=== PATIENT | female | born 1975 | race Caucasian/White ===

== ENCOUNTER 2018-05-07 12:08 | Inpatient (IN) | payer OTHER ==
[2018-05-07 12:56] VITALS: BMI 30.2
--- NOTE | 2018-05-07 15:07 | HP ---
CIWA Score - Admission Criteria [facility] Guidelines: Admission for Medically Managed Detox: Requires at least one of the followin. CIWA greater than 12 2. Seizures within the past 24 hours 3. Delirium tremens within the past 24 hours 4. Hallucinations within the past 24 hours 5. Acute intervention needed for co occurring medical disorder 6. Acute intervention needed for co occurring psychiatric disorder 7. Severe withdrawal that cannot be handled at a lower level of care (continued vomiting, continued diarrhea, abnormal vital signs) requiring intravenous medication and/or fluids 8. Admission ROS [facility] - [facility] Chief Complaint: PATIENT PRESENTS FOR REHAB FOR BZO DEPENDENCE. Allergies/Adverse Reactions: Allergies Allergy/AdvReac Type Severity Reaction Status Date / Time No Known Allergies Allergy Verified 05/07/18 15:11 History of Present Illness: PATIENT PRESENTS FOR REHAB FOR BZO DEPENDENCE. LAST USE 04/23/18, UDS +MTD. PATIENT IS IN [facility] MTD PROGRAM AND REPORTS DAILY DOSE OF 35MG, LAST DOSE TODAY. PENDING RN VERIFICATION. PATIENT STATES SHE STARTED TAKING PRESCRIBED KLONIPIN WHICH WAS VERIFIED IN ISTOP: SEE BELOW. PATIENT SAYS SHE WANTED TO GET OFF MEDICATION DUE TO ACS CASE. PATIENT DENIES SEIZURES, BLACK-OUTS AND FALLS. PATIENT ALSO SNIFFED ONE BAG OF HEROIN AFTER 8 MONTHS OF SOBRIETY ON . SHE STATES SHE HAS NOT SNIFFED HEROIN SINCE. PATIENT PMH INCLUDES IDDM, TOBACCO USE AND BIPOLAR DISORDER. PATIENT DENIES SI/HI. +SUICIDE ATTEMPT AT AGE 18 BY TAKING OVERDOSE OF BILLS. Others' Prescriptions Patient Name: Pebbles Lopez Date: 1975 Address: [address] [place] [id number] Sex: Female Rx Written Rx Dispensed Drug Quantity Days Supply Prescriber Name 03/01/2018 03/29/2018 clonazepam 1 mg tablet 30 30 Morro Mittal MD Patient Name: Pebbles Lopez Date: 1975 Address: [address] [place] [id number] Sex: Female Rx Written Rx Dispensed Drug Quantity Days Supply Prescriber Name 10/24/2017 10/24/2017 oxycodone-acetaminophen 5-325 mg tab 10 5 Raj Mejia MD 07/21/2017 07/22/2017 clonazepam 0.5 mg tablet 30 15 Joseph Cardenas MD Patient Name: Pebbles Lopez Date: 1975 Address: [address] [place] [id number] [place] [address] Sex: Female Rx Written Rx Dispensed Drug Quantity Days Supply Prescriber Name 09/20/2017 09/20/2017 oxycodone-acetaminophen 5-325 mg tablet 2 1 Slezinger, Anele * - Drugs marked with an asterisk are compound drugs. If the compound drug is made up of more than one controlled substance, then each controlled substance will be a separate row in the table. - Ebola screening Have you traveled outside of the country in the last 21 days: No Have you had contact with anyone from an Ebola affected area: No Have you been sick,other than usual withdrawal symptoms: No Do you have a fever: No - Review of Systems Constitutional: Changes in sleep, Unintentional Wgt. Loss EENT: reports: Blurred Vision (WHEN BLOOD SUGAR ELEVATED), Nose Congestion, Other (NO TEETH) Respiratory: reports: Cough (INTERMITTENT PRODUCTIVE COUGH) Cardiac: reports: No Symptoms Reported GI: reports: No Symptoms Reported : reports: No Symptoms Reported Musculoskeletal: reports: Back Pain, Muscle Pain Integumentary: reports: No Symptoms Reported Neuro: reports: Headache Endocrine: reports: Unexplained Weight Loss Hematology: reports: No Symptoms Reported Psychiatric: reports: Orientated x3, Anxious, Depressed Patient History - Patient Medical History Hx Anemia: No Hx Asthma: No Hx Chronic Obstructive Pulmonary Disease (COPD): No Hx Cancer: No Hx Cardiac Disorders: No Hx Congestive Heart Failure: No Hx Hypertension: No Hx Hypercholesterolemia: No Hx Pacemaker: No HX Cerebrovascular Accident: No Hx Seizures: No Hx Dementia: No Hx Diabetes: Yes (IDDM) Hx Gastrointestinal Disorders: No Hx Liver Disease: No Hx Genitourinary Disorders: No Hx Sexually Transmitted Disorders: No Hx Renal Disease (ESRD): No Hx Thyroid Disease: No Hx Human Immunodeficiency Virus (HIV): No (LAST TEST LAST MONTH AND REPORTS NEGATIVE, REFUSED TESTING) Hx Hepatitis C: No Hx Depression: No Hx Suicide Attempt: Yes (AGE 18, OVERDOSE OF PILLS) Hx Bipolar Disorder: Yes Hx Schizophrenia: No - Patient Surgical History Past Surgical History: Yes Other Surgical History: BREAST REDUCTION Anesthesia Reaction: No - PPD History Previous Implant?: Yes Documented Results: Negative w/o proof PPD to be Administered?: Yes - Reproductive History Patient is a Female of Child Bearing Age (11 -55 yrs old): Yes LMP comment: 04/18/18 Patient : No - Smoking Cessation Smoking history: Current every day smoker Have you smoked in the past 12 months: Yes Aproximately how many cigarettes per day: 10 Hx Chewing Tobacco Use: No Initiated information on smoking cessation: Yes 'Breaking Loose' booklet given: 05/07/18 - Substance & Tx. History Hx Alcohol Use: No Hx Substance Use: Yes Substance Use Type: Prescribed, Tranquilizers Hx Substance Use Treatment: Yes (2017 AT [facility] IN [place], [place]) - Substances Abused Benzodiazepine (Klonopin) Route: Oral Frequency: Daily Amount used: 10mg Age of first use: 35 Date of Last Use: 04/23/18 Heroin Route: Inhalation Frequency: 1-3 times last 30 days Amount used: 1/2 bag Age of first use: 36 Date of Last Use: 05/03/18 Family Disease History - Family Disease History Family Disease History: Diabetes: Father, Mother Admission Physical Exam [facility] - Vital Signs Vital Signs: Vital Signs - 24 hr 05/07/18 12:55 Temperature 98.3 F Pulse Rate 90 Respiratory 18 Rate Blood Pressure 111/67 - Physical General Appearance: Yes: No Apparent Distress, Appropriately Dressed, Anxious HEENTM: Yes: EOMI, Hearing grossly Normal, Normal ENT Inspection, Normocephalic , Normal Voice, ANGELITA, Pharynx Normal Respiratory: Yes: Chest Non-Tender, Lungs Clear, Normal Breath Sounds, No Accessory Muscle Use Neck: Yes: No masses,lesions,Nodules, Supple, Trachea in good position Breast: Yes: Breast Exam Deferred Cardiology: Yes: Regular Rhythm, Regular Rate, S1, S2 Abdominal: Yes: Normal Bowel Sounds, Non Tender, Soft Genitourinary: Yes: Frequency (WHEN BLOOD SUGAR ELEVATED) Back: Yes: Within Normal Limits Musculoskeletal: Yes: full range of Motion, Gait Steady Extremities: Yes: Normal Inspection, Normal Range of Motion, Non-Tender Neurological: Yes: medical assistant per diem II-XII NML intact, Fully Oriented, Alert, Motor Strength 5/5, Normal Response, Depressed Affect, Other (ANXIOUS) Integumentary: Yes: Normal Color, Dry, Warm Lymphatic: Yes: Within Normal Limits - Diagnostic (1) Benzodiazepine dependence Current Visit: Yes Status: Chronic (2) Methadone maintenance therapy patient Current Visit: Yes Status: Chronic (3) IDDM (insulin dependent diabetes mellitus) Current Visit: Yes Status: Chronic (4) Bipolar disorder Current Visit: Yes Status: Chronic Qualifiers: Most recent bipolar episode type: most recent episode unspecified type Cleared for Admission [facility] - Detox or Rehab Claeared for Rehab Admission: Yes [facility] Breath Alcohol Content Breath Alcohol Content: 0 Urine Pregancy Test - Result Urine Test Results: Negative- NO Line Present Urine Drug Screen - Results Drug Screen Negative: No Urine Drug Screen Results: MTD-Methadone Inpatient Rehab Admission - Rehab Decision to Admit Inpatient rehab admission?: Yes - Initial Determination Are CD services needed?: Yes Free of communicable disease: Yes Not in need of hospitalization: Yes - Rehab Admission Criteria Previous failed treatment: Yes Poor recovery environment: Yes Comorbidities: Yes Lacks judgement: No Patient is meeting Inpatient Rehab admission criteria:: Yes
[2018-05-07] MEDS ORDERED: guaiFENesin/D-METHORPHAN HB 10 ML UNIT-DOSE CUPS PO PRN (15:11)
[2018-05-07] MEDS ORDERED: P-EPHED 60MG/TRIPROLIDI 2.5MG TABLET PO PRN (15:11)
[2018-05-07] MEDS ORDERED: MAG HYDROX/AL HYDROX/SIMETH 30 ML UNIT-DOSE CUP PO PRN (15:11)
[2018-05-07] MEDS ORDERED: MENTHOL/PHENOL 1 EACH UD MM PRN (15:11)
[2018-05-07] MEDS ORDERED: MAGNESIUM CITRATE 300 ML BOTTLE PO PRN (15:11)
[2018-05-07] MEDS ORDERED: MAGNESIUM HYDROX 2400MG/30ML ORAL SUSPENSION 30 ML CUP PO PRN (15:11)
[2018-05-07] MEDS ORDERED: LOPERAMIDE HCL 2 MG CAPSULE PO PRN (15:11)
[2018-05-07] MEDS ORDERED: INSULIN (NOVOLOG) ASPART 100 UNITS/ML 10ML VIAL SQ ONE (15:15)
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
[2018-05-07] MEDS ORDERED: TUBERCULIN PPD 5 TU/0.1ML VIAL ID ONE (17:39)
[2018-05-07] MEDS: GABAPENTIN 400 MG CAPSULE (FP) PO SCH ×2 (17:53→22:15)
[2018-05-07] MEDS: INSULIN (LEVEMIR) 100 UNITS/ML UNITS SQ SCH (17:56)
[2018-05-07] MEDS: INSULIN SLIDING SCALE (NOVOLOG) 1 VIAL SQ SCH ×2 (18:01→22:08)
[2018-05-07] MEDS: hydrOXYzine PAMOATE 50 MG CAPSULE (FP) PO PRN (18:01)
[2018-05-07] MEDS ORDERED: INSULIN (NOVOLOG) ASPART 100 UNITS/ML 10ML VIAL ONE ×2 (18:01→22:09)
[2018-05-07] MEDS: THIAMINE HCL 100 MG TABLET (FP) PO SCH (22:10)
[2018-05-08] MEDS: GABAPENTIN 400 MG CAPSULE (FP) PO SCH ×3 (07:07→21:27)
[2018-05-08] MEDS: INSULIN SLIDING SCALE (NOVOLOG) 1 VIAL SQ SCH ×4 (07:08→21:30)
[2018-05-08] MEDS ORDERED: INSULIN (NOVOLOG) ASPART 100 UNITS/ML 10ML VIAL ONE ×4 (07:09→22:33)
[2018-05-08] MEDS: INSULIN (LEVEMIR) 100 UNITS/ML UNITS SQ SCH ×3 (07:10→16:56)
[2018-05-08] MEDS ORDERED: METHADONE HCL 40 MG DISPERSABLE TABLET PO SCH (08:45)
[2018-05-08] MEDS ORDERED: METHADONE HCL 5 MG TABLET ONE (08:58)
[2018-05-08] MEDS ORDERED: METHADONE HCL 10 MG TABLET ONE (08:58)
[2018-05-08] MEDS: ACETAMINOPHEN 325 MG TABLET (FP) PO PRN (09:10)
[2018-05-08] MEDS: METHADONE 30 MG, METHADONE 5 MG PO SCH (09:10)
[2018-05-08] MEDS: NICOTINE 21 MG/24 HOURS TOPICAL PATCH TD SCH (09:10)
[2018-05-08] MEDS: PRENATAL VITAMINS W/ FOLIC ACID TABLET (FP) PO SCH (09:10)
[2018-05-08] MEDS: hydrOXYzine PAMOATE 50 MG CAPSULE (FP) PO PRN ×3 (09:11→21:29)
[2018-05-08 10:23] LABS: HEMATOCRIT 42.6 % (32.4-45.2); HEMOGLOBIN 14.8 GM/dL (10.7-15.3); MCH 31.8 pg (25.7-33.7); MCHC 34.7 g/dl (32.0-36.0); MEAN CELL VOLUME 91.7 fl (80-96); MEAN PLT VOLUME 7.8 fl (7.5-11.1); PLATELET COUNT 202 K/MM3 (134-434); RBC 4.64 M/mm3 (3.60-5.2); RDW 13.6 % (11.6-15.6); WHITE BLOOD COUNT 8.7 K/mm3 (4.0-10.0)
[2018-05-08 10:26] LABS: ALBUMIN 3.7 g/dl (3.4-5.0); ALK PHOS 87 U/L (45-117); ANION GAP 6 MMOL/L (8-16); BILIRUBIN,TOTAL 0.2 mg/dL (0.2-1); BLOOD UREA NITROGEN 13 mg/dL (7-18); CALCIUM 8.5 mg/dL (8.5-10.1); CHLORIDE 103 mmol/L (98-107); CO2 27 mmol/L (21-32); CREATININE 0.7 mg/dL (0.55-1.3); GLUCOSE,RANDOM 256 mg/dL (74-106); POTASSIUM 4.4 mmol/L (3.5-5.1); SGOT/AST 12 U/L (15-37); SGPT/ALT 22 U/L (13-61); SODIUM 136 mmol/L (136-145); TOT PROT 7.7 g/dl (6.4-8.2); URINE APPEARANCE SLCLOUDY; URINE BILIRUBIN NEGATIVE (<2.0 mg/dL); URINE COLOR LTYELLOW; URINE GLUCOSE (UA) 3+ (NEGATIVE); URINE KETONE NEGATIVE (NEGATIVE); URINE LEUK ESTERASE 1+ (NEGATIVE); URINE NITRITE NEGATIVE (NEGATIVE); URINE PROTEIN NEGATIVE (NEGATIVE); URINE UROBILINOGEN NEGATIVE mg/dL (0.2-1.0)
[2018-05-08 10:29] LABS: EPI CELLS MANY /HPF (FEW); URINE BACTERIA RARE /hpf (NONE SEEN); YEAST RARE
[2018-05-08] MEDS: IBUPROFEN 400 MG TABLET (FP) PO PRN (11:56)
[2018-05-08] MEDS: THIAMINE HCL 100 MG TABLET (FP) PO SCH (21:27)
[2018-05-08] MEDS: MELATONIN 5 MG TABLETS PO PRN (21:29)
--- NOTE | 2018-05-08 22:18 | EKG ---
Test Reason : Blood Pressure : / mmHG Vent. Rate : 095 BPM Atrial Rate : 095 BPM P-R Int : 170 ms QRS Dur : 086 ms QT Int : 368 ms P-R-T Axes : 065 045 073 degrees QTc Int : 462 ms NORMAL SINUS RHYTHM NORMAL ECG NO PREVIOUS ECGS AVAILABLE Confirmed by EDUARDO RENAE MD ([id number]) on 05/08/2018 10:18:18 PM Referred By: Confirmed By:EDUARDO RENAE MD
[2018-05-09] MEDS ORDERED: METHADONE HCL 10 MG TABLET ONE (02:34)
[2018-05-09] MEDS ORDERED: METHADONE HCL 5 MG TABLET ONE (02:34)
[2018-05-09] MEDS: METHADONE 30 MG, METHADONE 5 MG PO SCH (06:30)
[2018-05-09] MEDS: GABAPENTIN 400 MG CAPSULE (FP) PO SCH ×3 (06:30→21:45)
[2018-05-09] MEDS: INSULIN SLIDING SCALE (NOVOLOG) 1 VIAL SQ SCH ×4 (07:29→21:47)
[2018-05-09] MEDS: INSULIN (LEVEMIR) 100 UNITS/ML UNITS SQ SCH ×3 (07:29→16:42)
[2018-05-09] MEDS: hydrOXYzine PAMOATE 50 MG CAPSULE (FP) PO PRN ×2 (07:31→14:16)
[2018-05-09] MEDS: IBUPROFEN 400 MG TABLET (FP) PO PRN (07:31)
[2018-05-09] MEDS ORDERED: INSULIN (LEVEMIR) 100 UNITS/ML UNITS SQ ONE ×2 (07:37→22:54)
[2018-05-09] MEDS ORDERED: PT OWN MED DRAWER 7, Y5N ONE ×2 (07:38→22:57)
[2018-05-09] MEDS: PRENATAL VITAMINS W/ FOLIC ACID TABLET (FP) PO SCH (10:15)
[2018-05-09] MEDS: NICOTINE 21 MG/24 HOURS TOPICAL PATCH TD SCH (10:15)
[2018-05-09] MEDS ORDERED: INSULIN (NOVOLOG) ASPART 100 UNITS/ML 10ML VIAL ONE (11:40)
[2018-05-09] MEDS: MELATONIN 5 MG TABLETS PO PRN (21:45)
[2018-05-09] MEDS: THIAMINE HCL 100 MG TABLET (FP) PO SCH (21:45)
[2018-05-10] MEDS ORDERED: METHADONE HCL 10 MG TABLET ONE (03:30)
[2018-05-10] MEDS ORDERED: METHADONE HCL 5 MG TABLET ONE (03:30)
[2018-05-10] MEDS: METHADONE 30 MG, METHADONE 5 MG PO SCH (06:56)
[2018-05-10] MEDS: GABAPENTIN 400 MG CAPSULE (FP) PO SCH ×3 (06:57→21:03)
[2018-05-10] MEDS: INSULIN SLIDING SCALE (NOVOLOG) 1 VIAL SQ SCH ×4 (07:44→21:05)
[2018-05-10] MEDS ORDERED: INSULIN (NOVOLOG) ASPART 100 UNITS/ML 10ML VIAL ONE ×2 (07:44→12:05)
[2018-05-10] MEDS: INSULIN (LEVEMIR) 100 UNITS/ML UNITS SQ SCH ×3 (07:45→16:51)
[2018-05-10] MEDS: hydrOXYzine PAMOATE 50 MG CAPSULE (FP) PO PRN ×2 (07:46→16:50)
[2018-05-10] MEDS: PRENATAL VITAMINS W/ FOLIC ACID TABLET (FP) PO SCH (10:25)
[2018-05-10] MEDS: NICOTINE 21 MG/24 HOURS TOPICAL PATCH TD SCH (10:25)
[2018-05-10] MEDS: IBUPROFEN 400 MG TABLET (FP) PO PRN (10:26)
[2018-05-10] MEDS: THIAMINE HCL 100 MG TABLET (FP) PO SCH (21:03)
[2018-05-10] MEDS: MELATONIN 5 MG TABLETS PO PRN (21:05)
[2018-05-10] MEDS ORDERED: PT OWN MED DRAWER 7, Y5N ONE (22:10)
[2018-05-11] MEDS ORDERED: METHADONE HCL 5 MG TABLET ONE (06:05)
[2018-05-11] MEDS ORDERED: METHADONE HCL 10 MG TABLET ONE (06:05)
[2018-05-11] MEDS: METHADONE 30 MG, METHADONE 5 MG PO SCH (06:50)
[2018-05-11] MEDS: GABAPENTIN 400 MG CAPSULE (FP) PO SCH ×3 (06:51→22:06)
[2018-05-11] MEDS: IBUPROFEN 400 MG TABLET (FP) PO PRN (06:54)
[2018-05-11] MEDS: INSULIN SLIDING SCALE (NOVOLOG) 1 VIAL SQ SCH ×4 (07:44→22:19)
[2018-05-11] MEDS: INSULIN (LEVEMIR) 100 UNITS/ML UNITS SQ SCH ×3 (08:40→17:04)
[2018-05-11] MEDS ORDERED: INSULIN (LEVEMIR) 100 UNITS/ML UNITS SQ ONE (09:14)
[2018-05-11] MEDS: NICOTINE 21 MG/24 HOURS TOPICAL PATCH TD SCH (10:30)
[2018-05-11] MEDS: PRENATAL VITAMINS W/ FOLIC ACID TABLET (FP) PO SCH (10:30)
[2018-05-11] MEDS: FLUoxetine HCL 20 MG CAPSULE (FP) PO SCH (10:31)
[2018-05-11] MEDS: hydrOXYzine PAMOATE 50 MG CAPSULE (FP) PO PRN ×2 (10:31→16:49)
[2018-05-11] MEDS ORDERED: INSULIN (NOVOLOG) ASPART 100 UNITS/ML 10ML VIAL ONE ×2 (12:03→17:03)
[2018-05-11] MEDS: THIAMINE HCL 100 MG TABLET (FP) PO SCH (22:06)
[2018-05-11] MEDS: QUEtiapine FUMARATE 100 MG TABLET (FP) PO SCH (22:07)
[2018-05-12] MEDS ORDERED: METHADONE HCL 5 MG TABLET ONE (06:10)
[2018-05-12] MEDS ORDERED: METHADONE HCL 10 MG TABLET ONE (06:10)
[2018-05-12] MEDS: GABAPENTIN 400 MG CAPSULE (FP) PO SCH ×3 (06:59→21:24)
[2018-05-12] MEDS: METHADONE 30 MG, METHADONE 5 MG PO SCH (06:59)
[2018-05-12] MEDS: INSULIN (LEVEMIR) 100 UNITS/ML UNITS SQ SCH ×3 (07:00→17:15)
[2018-05-12] MEDS: INSULIN SLIDING SCALE (NOVOLOG) 1 VIAL SQ SCH ×4 (07:01→21:23)
[2018-05-12] MEDS: hydrOXYzine PAMOATE 50 MG CAPSULE (FP) PO PRN ×2 (09:39→21:24)
[2018-05-12] MEDS: FLUoxetine HCL 20 MG CAPSULE (FP) PO SCH (09:39)
[2018-05-12] MEDS: NICOTINE 21 MG/24 HOURS TOPICAL PATCH TD SCH (09:39)
[2018-05-12] MEDS: PRENATAL VITAMINS W/ FOLIC ACID TABLET (FP) PO SCH (09:39)
[2018-05-12] MEDS ORDERED: INSULIN (LEVEMIR) 100 UNITS/ML UNITS SQ ONE (11:59)
[2018-05-12] MEDS: THIAMINE HCL 100 MG TABLET (FP) PO SCH (21:23)
[2018-05-12] MEDS: QUEtiapine FUMARATE 100 MG TABLET (FP) PO SCH (21:23)
[2018-05-13] MEDS ORDERED: METHADONE HCL 5 MG TABLET ONE (05:43)
[2018-05-13] MEDS ORDERED: METHADONE HCL 10 MG TABLET ONE (05:44)
[2018-05-13] MEDS: GABAPENTIN 400 MG CAPSULE (FP) PO SCH ×3 (06:54→21:22)
[2018-05-13] MEDS: METHADONE 30 MG, METHADONE 5 MG PO SCH (06:54)
[2018-05-13] MEDS ORDERED: INSULIN (NOVOLOG) ASPART 100 UNITS/ML 10ML VIAL ONE ×4 (06:57→23:00)
[2018-05-13] MEDS: INSULIN SLIDING SCALE (NOVOLOG) 1 VIAL SQ SCH ×4 (06:58→21:24)
[2018-05-13] MEDS: INSULIN (LEVEMIR) 100 UNITS/ML UNITS SQ SCH ×3 (07:39→17:00)
[2018-05-13] MEDS: FLUoxetine HCL 20 MG CAPSULE (FP) PO SCH (09:13)
[2018-05-13] MEDS: hydrOXYzine PAMOATE 50 MG CAPSULE (FP) PO PRN ×3 (09:13→21:23)
[2018-05-13] MEDS: PRENATAL VITAMINS W/ FOLIC ACID TABLET (FP) PO SCH (09:14)
[2018-05-13] MEDS: NICOTINE 21 MG/24 HOURS TOPICAL PATCH TD SCH (09:14)
[2018-05-13] MEDS: QUEtiapine FUMARATE 100 MG TABLET (FP) PO SCH (21:23)
[2018-05-13] MEDS: THIAMINE HCL 100 MG TABLET (FP) PO SCH (21:23)
[2018-05-13] MEDS ORDERED: ACETAMINOPHEN 325 MG TABLET (FP) ONE (23:03)
[2018-05-13] MEDS ORDERED: PT OWN MED DRAWER 7, Y5N ONE (23:03)
[2018-05-14] MEDS ORDERED: METHADONE HCL 5 MG TABLET ONE (05:56)
[2018-05-14] MEDS ORDERED: METHADONE HCL 10 MG TABLET ONE (05:57)
[2018-05-14] MEDS: INSULIN SLIDING SCALE (NOVOLOG) 1 VIAL SQ SCH ×4 (06:24→21:30)
[2018-05-14] MEDS ORDERED: INSULIN (NOVOLOG) ASPART 100 UNITS/ML 10ML VIAL ONE ×3 (06:25→16:58)
[2018-05-14] MEDS: METHADONE 30 MG, METHADONE 5 MG PO SCH (06:25)
[2018-05-14] MEDS: GABAPENTIN 400 MG CAPSULE (FP) PO SCH ×3 (06:25→21:29)
[2018-05-14] MEDS: INSULIN (LEVEMIR) 100 UNITS/ML UNITS SQ SCH ×3 (07:42→17:00)
[2018-05-14] MEDS: hydrOXYzine PAMOATE 50 MG CAPSULE (FP) PO PRN ×3 (07:43→21:32)
[2018-05-14] MEDS: PRENATAL VITAMINS W/ FOLIC ACID TABLET (FP) PO SCH (10:35)
[2018-05-14] MEDS: NICOTINE 21 MG/24 HOURS TOPICAL PATCH TD SCH (10:35)
[2018-05-14] MEDS: FLUoxetine HCL 20 MG CAPSULE (FP) PO SCH (10:35)
--- NOTE | 2018-05-14 12:37 | PN ---
[facility] Progress Note Note: NURSE МАРИЯ CALLED TO INFORM MEDIA PRODUCTION MANAGER BS 460 MG/DL AND 10 UNITS REG. INSULIN SLIDING SCALE GIVEN ALONG WITH LEVEMIR 15 UNITS RASHID DOSE GIVEN ORDERED. Laboratory Tests 05/07/18 05/07/18 05/07/18 15:14 17:51 22:04 WBC RBC Hgb Hct MCV MCH MCHC RDW Plt Count MPV Sodium Potassium Chloride Carbon Dioxide Anion Gap BUN Creatinine Creat Clearance w eGFR POC Glucometer 386 354 302 Random Glucose Calcium Total Bilirubin AST ALT Alkaline Phosphatase Total Protein Albumin Urine Color Urine Appearance Urine pH Ur Specific [place] Urine Protein Urine Glucose (UA) Urine Ketones Urine Blood Urine Nitrite Urine Bilirubin Urine Urobilinogen Ur Leukocyte Esterase Urine WBC (Auto) Urine RBC (Auto) Ur Epithelial Cells Urine Bacteria Urine Yeast RPR Titer 05/08/18 05/08/18 05/08/18 07:07 07:40 07:40 WBC 8.7 RBC 4.64 Hgb 14.8 Hct 42.6 MCV 91.7 MCH 31.8 MCHC 34.7 RDW 13.6 Plt Count 202 MPV 7.8 Sodium 136 Potassium 4.4 Chloride 103 Carbon Dioxide 27 Anion Gap 6 L BUN 13 Creatinine 0.7 Creat Clearance w eGFR > 60 POC Glucometer 265 Random Glucose 256 H Calcium 8.5 Total Bilirubin 0.2 AST 12 L ALT 22 Alkaline Phosphatase 87 Total Protein 7.7 Albumin 3.7 Urine Color Urine Appearance Urine pH Ur Specific [place] Urine Protein Urine Glucose (UA) Urine Ketones Urine Blood Urine Nitrite Urine Bilirubin Urine Urobilinogen Ur Leukocyte Esterase Urine WBC (Auto) Urine RBC (Auto) Ur Epithelial Cells Urine Bacteria Urine Yeast RPR Titer 05/08/18 05/08/18 05/08/18 07:40 07:40 11:50 WBC RBC Hgb Hct MCV MCH MCHC RDW Plt Count MPV Sodium Potassium Chloride Carbon Dioxide Anion Gap BUN Creatinine Creat Clearance w eGFR POC Glucometer 347 Random Glucose Calcium Total Bilirubin AST ALT Alkaline Phosphatase Total Protein Albumin Urine Color Ltyellow Urine Appearance Slcloudy Urine pH 6.0 Ur Specific [place] 1.035 Urine Protein Negative Urine Glucose (UA) 3+ H Urine Ketones Negative Urine Blood Negative Urine Nitrite Negative Urine Bilirubin Negative Urine Urobilinogen Negative Ur Leukocyte Esterase 1+ H Urine WBC (Auto) 6 Urine RBC (Auto) 6 Ur Epithelial Cells Many Urine Bacteria Rare Urine Yeast Rare RPR Titer Nonreactive 05/08/18 05/08/18 05/09/18 16:45 21:00 06:33 WBC RBC Hgb Hct MCV MCH MCHC RDW Plt Count MPV Sodium Potassium Chloride Carbon Dioxide Anion Gap BUN Creatinine Creat Clearance w eGFR POC Glucometer 366 381 245 Random Glucose Calcium Total Bilirubin AST ALT Alkaline Phosphatase Total Protein Albumin Urine Color Urine Appearance Urine pH Ur Specific [place] Urine Protein Urine Glucose (UA) Urine Ketones Urine Blood Urine Nitrite Urine Bilirubin Urine Urobilinogen Ur Leukocyte Esterase Urine WBC (Auto) Urine RBC (Auto) Ur Epithelial Cells Urine Bacteria Urine Yeast RPR Titer 05/09/18 05/09/18 05/09/18 11:33 16:31 20:52 WBC RBC Hgb Hct MCV MCH MCHC RDW Plt Count MPV Sodium Potassium Chloride Carbon Dioxide Anion Gap BUN Creatinine Creat Clearance w eGFR POC Glucometer 409 292 439 Random Glucose Calcium Total Bilirubin AST ALT Alkaline Phosphatase Total Protein Albumin Urine Color Urine Appearance Urine pH Ur Specific [place] Urine Protein Urine Glucose (UA) Urine Ketones Urine Blood Urine Nitrite Urine Bilirubin Urine Urobilinogen Ur Leukocyte Esterase Urine WBC (Auto) Urine RBC (Auto) Ur Epithelial Cells Urine Bacteria Urine Yeast RPR Titer 05/10/18 05/10/18 05/10/18 06:55 12:02 16:48 WBC RBC Hgb Hct MCV MCH MCHC RDW Plt Count MPV Sodium Potassium Chloride Carbon Dioxide Anion Gap BUN Creatinine Creat Clearance w eGFR POC Glucometer 283 487 335 Random Glucose Calcium Total Bilirubin AST ALT Alkaline Phosphatase Total Protein Albumin Urine Color Urine Appearance Urine pH Ur Specific [place] Urine Protein Urine Glucose (UA) Urine Ketones Urine Blood Urine Nitrite Urine Bilirubin Urine Urobilinogen Ur Leukocyte Esterase Urine WBC (Auto) Urine RBC (Auto) Ur Epithelial Cells Urine Bacteria Urine Yeast RPR Titer 05/10/18 05/11/18 05/11/18 20:53 06:47 12:00 WBC RBC Hgb Hct MCV MCH MCHC RDW Plt Count MPV Sodium Potassium Chloride Carbon Dioxide Anion Gap BUN Creatinine Creat Clearance w eGFR POC Glucometer 393 256 464 Random Glucose Calcium Total Bilirubin AST ALT Alkaline Phosphatase Total Protein Albumin Urine Color Urine Appearance Urine pH Ur Specific [place] Urine Protein Urine Glucose (UA) Urine Ketones Urine Blood Urine Nitrite Urine Bilirubin Urine Urobilinogen Ur Leukocyte Esterase Urine WBC (Auto) Urine RBC (Auto) Ur Epithelial Cells Urine Bacteria Urine Yeast RPR Titer 05/11/18 05/11/18 05/12/18 16:46 22:12 06:26 WBC RBC Hgb Hct MCV MCH MCHC RDW Plt Count MPV Sodium Potassium Chloride Carbon Dioxide Anion Gap BUN Creatinine Creat Clearance w eGFR POC Glucometer 357 421 223 Random Glucose Calcium Total Bilirubin AST ALT Alkaline Phosphatase Total Protein Albumin Urine Color Urine Appearance Urine pH Ur Specific [place] Urine Protein Urine Glucose (UA) Urine Ketones Urine Blood Urine Nitrite Urine Bilirubin Urine Urobilinogen Ur Leukocyte Esterase Urine WBC (Auto) Urine RBC (Auto) Ur Epithelial Cells Urine Bacteria Urine Yeast RPR Titer 05/12/18 05/12/18 05/12/18 11:54 17:12 21:20 WBC RBC Hgb Hct MCV MCH MCHC RDW Plt Count MPV Sodium Potassium Chloride Carbon Dioxide Anion Gap BUN Creatinine Creat Clearance w eGFR POC Glucometer 396 281 354 Random Glucose Calcium Total Bilirubin AST ALT Alkaline Phosphatase Total Protein Albumin Urine Color Urine Appearance Urine pH Ur Specific [place] Urine Protein Urine Glucose (UA) Urine Ketones Urine Blood Urine Nitrite Urine Bilirubin Urine Urobilinogen Ur Leukocyte Esterase Urine WBC (Auto) Urine RBC (Auto) Ur Epithelial Cells Urine Bacteria Urine Yeast RPR Titer 05/13/18 05/13/18 05/13/18 06:53 11:50 16:52 WBC RBC Hgb Hct MCV MCH MCHC RDW Plt Count MPV Sodium Potassium Chloride Carbon Dioxide Anion Gap BUN Creatinine Creat Clearance w eGFR POC Glucometer 238 321 381 Random Glucose Calcium Total Bilirubin AST ALT Alkaline Phosphatase Total Protein Albumin Urine Color Urine Appearance Urine pH Ur Specific [place] Urine Protein Urine Glucose (UA) Urine Ketones Urine Blood Urine Nitrite Urine Bilirubin Urine Urobilinogen Ur Leukocyte Esterase Urine WBC (Auto) Urine RBC (Auto) Ur Epithelial Cells Urine Bacteria Urine Yeast RPR Titer 05/13/18 05/14/18 05/14/18 20:53 06:22 11:49 WBC RBC Hgb Hct MCV MCH MCHC RDW Plt Count MPV Sodium Potassium Chloride Carbon Dioxide Anion Gap BUN Creatinine Creat Clearance w eGFR POC Glucometer 373 246 460 Random Glucose Calcium Total Bilirubin AST ALT Alkaline Phosphatase Total Protein Albumin Urine Color Urine Appearance Urine pH Ur Specific [place] Urine Protein Urine Glucose (UA) Urine Ketones Urine Blood Urine Nitrite Urine Bilirubin Urine Urobilinogen Ur Leukocyte Esterase Urine WBC (Auto) Urine RBC (Auto) Ur Epithelial Cells Urine Bacteria Urine Yeast RPR Titer PLAN:MONITOR PT STATUS REMIND PT DIET ADHERENCE; NO SUGARY JUICES.
[2018-05-14] MEDS: IBUPROFEN 400 MG TABLET (FP) PO PRN (17:54)
[2018-05-14] MEDS: THIAMINE HCL 100 MG TABLET (FP) PO SCH (21:29)
[2018-05-14] MEDS: QUEtiapine FUMARATE 100 MG TABLET (FP) PO SCH (21:29)
[2018-05-15] MEDS ORDERED: METHADONE HCL 5 MG TABLET ONE (06:00)
[2018-05-15] MEDS ORDERED: METHADONE HCL 10 MG TABLET ONE (06:00)
[2018-05-15] MEDS: GABAPENTIN 400 MG CAPSULE (FP) PO SCH ×3 (07:10→21:44)
[2018-05-15] MEDS: METHADONE 30 MG, METHADONE 5 MG PO SCH ×2 (07:10→08:38)
[2018-05-15] MEDS: INSULIN SLIDING SCALE (NOVOLOG) 1 VIAL SQ SCH ×4 (07:48→21:44)
[2018-05-15] MEDS: INSULIN (LEVEMIR) 100 UNITS/ML UNITS SQ SCH ×3 (07:49→16:53)
[2018-05-15] MEDS ORDERED: INSULIN (NOVOLOG) ASPART 100 UNITS/ML 10ML VIAL ONE ×2 (07:52→12:06)
[2018-05-15] MEDS: hydrOXYzine PAMOATE 50 MG CAPSULE (FP) PO PRN ×3 (10:31→21:46)
[2018-05-15] MEDS: FLUoxetine HCL 20 MG CAPSULE (FP) PO SCH (10:31)
[2018-05-15] MEDS: NICOTINE 21 MG/24 HOURS TOPICAL PATCH TD SCH (10:31)
[2018-05-15] MEDS: PRENATAL VITAMINS W/ FOLIC ACID TABLET (FP) PO SCH (10:31)
[2018-05-15] MEDS: THIAMINE HCL 100 MG TABLET (FP) PO SCH (21:44)
[2018-05-15] MEDS: QUEtiapine FUMARATE 100 MG TABLET (FP) PO SCH (21:44)
[2018-05-16] MEDS ORDERED: METHADONE HCL 5 MG TABLET ONE (06:06)
[2018-05-16] MEDS ORDERED: METHADONE HCL 10 MG TABLET ONE (06:07)
[2018-05-16] MEDS: GABAPENTIN 400 MG CAPSULE (FP) PO SCH ×3 (06:53→21:43)
[2018-05-16] MEDS: METHADONE 30 MG, METHADONE 5 MG PO SCH (06:53)
[2018-05-16] MEDS ORDERED: INSULIN (NOVOLOG) ASPART 100 UNITS/ML 10ML VIAL ONE ×2 (07:56→11:47)
[2018-05-16] MEDS: INSULIN (LEVEMIR) 100 UNITS/ML UNITS SQ SCH ×3 (08:20→16:37)
[2018-05-16] MEDS: INSULIN SLIDING SCALE (NOVOLOG) 1 VIAL SQ SCH ×4 (08:21→21:44)
[2018-05-16] MEDS: IBUPROFEN 400 MG TABLET (FP) PO PRN (08:55)
[2018-05-16] MEDS: hydrOXYzine PAMOATE 50 MG CAPSULE (FP) PO PRN ×2 (08:55→16:37)
[2018-05-16] MEDS: FLUoxetine HCL 20 MG CAPSULE (FP) PO SCH (10:26)
[2018-05-16] MEDS: NICOTINE 21 MG/24 HOURS TOPICAL PATCH TD SCH (10:26)
[2018-05-16] MEDS: PRENATAL VITAMINS W/ FOLIC ACID TABLET (FP) PO SCH (10:26)
[2018-05-16] MEDS: ACETAMINOPHEN 325 MG TABLET (FP) PO PRN (11:48)
[2018-05-16] MEDS: THIAMINE HCL 100 MG TABLET (FP) PO SCH (21:43)
[2018-05-16] MEDS: QUEtiapine FUMARATE 100 MG TABLET (FP) PO SCH (21:43)
[2018-05-17] MEDS ORDERED: METHADONE HCL 10 MG TABLET ONE (05:52)
[2018-05-17] MEDS ORDERED: METHADONE HCL 5 MG TABLET ONE (05:52)
[2018-05-17] MEDS: METHADONE 30 MG, METHADONE 5 MG PO SCH (06:53)
[2018-05-17] MEDS: GABAPENTIN 400 MG CAPSULE (FP) PO SCH ×3 (06:54→21:30)
[2018-05-17] MEDS: INSULIN SLIDING SCALE (NOVOLOG) 1 VIAL SQ SCH ×4 (07:46→21:33)
[2018-05-17] MEDS: INSULIN (LEVEMIR) 100 UNITS/ML UNITS SQ SCH ×3 (07:46→16:46)
[2018-05-17] MEDS ORDERED: INSULIN (NOVOLOG) ASPART 100 UNITS/ML 10ML VIAL ONE ×4 (07:52→22:47)
[2018-05-17] MEDS: NICOTINE 21 MG/24 HOURS TOPICAL PATCH TD SCH (10:11)
[2018-05-17] MEDS: PRENATAL VITAMINS W/ FOLIC ACID TABLET (FP) PO SCH (10:12)
[2018-05-17] MEDS: FLUoxetine HCL 20 MG CAPSULE (FP) PO SCH (10:12)
[2018-05-17] MEDS: hydrOXYzine PAMOATE 50 MG CAPSULE (FP) PO PRN ×3 (10:13→21:31)
[2018-05-17] MEDS ORDERED: INSULIN (LEVEMIR) 100 UNITS/ML UNITS SQ ONE ×2 (11:56→16:41)
[2018-05-17] MEDS: THIAMINE HCL 100 MG TABLET (FP) PO SCH (21:30)
[2018-05-17] MEDS: QUEtiapine FUMARATE 100 MG TABLET (FP) PO SCH (21:30)
[2018-05-18] MEDS ORDERED: METHADONE HCL 10 MG TABLET ONE (03:01)
[2018-05-18] MEDS ORDERED: METHADONE HCL 5 MG TABLET ONE (03:01)
[2018-05-18] MEDS: METHADONE 30 MG, METHADONE 5 MG PO SCH (06:25)
[2018-05-18] MEDS: GABAPENTIN 400 MG CAPSULE (FP) PO SCH ×3 (06:25→21:22)
[2018-05-18] MEDS ORDERED: INSULIN (NOVOLOG) ASPART 100 UNITS/ML 10ML VIAL ONE ×3 (06:36→16:39)
[2018-05-18] MEDS: INSULIN SLIDING SCALE (NOVOLOG) 1 VIAL SQ SCH ×4 (07:45→21:26)
[2018-05-18] MEDS: INSULIN (LEVEMIR) 100 UNITS/ML UNITS SQ SCH ×3 (07:46→16:43)
[2018-05-18] MEDS: FLUoxetine HCL 20 MG CAPSULE (FP) PO SCH (09:26)
[2018-05-18] MEDS: NICOTINE 21 MG/24 HOURS TOPICAL PATCH TD SCH (09:26)
[2018-05-18] MEDS: hydrOXYzine PAMOATE 50 MG CAPSULE (FP) PO PRN ×2 (09:26→21:23)
[2018-05-18] MEDS: PRENATAL VITAMINS W/ FOLIC ACID TABLET (FP) PO SCH (09:26)
[2018-05-18] MEDS: NICOTINE POLACRILEX 2 MG GUM BC PRN (09:27)
--- NOTE | 2018-05-18 15:11 | PN ---
[facility] Progress Note (SOAP) Subjective: client c/o painless raised area on posterior aspect of left index finger. Objective: left index finger with several puncture sites on medial side from blood glucose sticks. No s/s of infection noted at those sites. Hands and fingers on both hands equal in size and color. No redness, no tenderness on palpation, no swelling or edema noted. On posterior aspect of left forefinger is a raised, hard to touch, painless area, color consistent with the rest of the hand. 05/18/18 15:06 Assessment: 05/18/18 15:09 callus Plan: Advised patient that she had a callus on her left index finger and that no further medical treatment was needed. Encouraged to use hand cream as needed. Also advised patient that it was not related to fingersticks.
--- NOTE | 2018-05-18 17:23 | PN ---
Psychiatric Progress Note Vital Signs: Vital Signs Period Temp Pulse Resp BP Sys/Avila Pulse Ox Last 24 Hr 97.9 F 80 18-18 129/81 Date of Session: 05/18/18 Chief Complaint:: " My mood is not stable." HPI: Patient complaining of mood irritability and anxiety. ROS: Diabetes, Breast Reduction Current Medications: Active Medications Generic Name Dose Route Start Last Admin Trade Name Freq PRN Reason Stop Dose Admin Acetaminophen 650 mg 05/07/18 15:11 05/16/18 11:48 Tylenol - PO 650 mg Q4H PRN Administration FEVER Al Hydroxide/Mg Hydroxide 30 ml 05/07/18 15:11 Mylanta Oral Suspension - PO Q6H PRN DYSPEPSIA Eucalyptus/Menthol/Phenol/Sorbitol 1 each 05/07/18 15:11 Cepastat Lozenge - MM Q4H PRN SORE THROAT Fluoxetine HCl 60 mg 05/11/18 10:00 05/18/18 09:26 Prozac - PO 60 mg DAILY RASHID Administration Gabapentin 400 mg 05/07/18 15:30 05/18/18 13:38 Neurontin - PO 400 mg TID RASHID Administration Guaifenesin 10 ml 05/07/18 15:11 Robitussin Dm - PO Q6H PRN COUGH Hydroxyzine Pamoate 50 mg 05/07/18 15:11 05/18/18 09:26 Vistaril - PO 50 mg Q4H PRN Administration AGITATION Ibuprofen 400 mg 05/07/18 15:11 05/16/18 08:55 Motrin - PO 400 mg Q6H PRN Administration Pain level 4-6 Insulin Aspart 1 vial 05/07/18 16:30 05/18/18 16:42 Novolog Vial Sliding Scale - SQ 8 unit ACHS RASHID Administration Protocol Insulin Detemir 15 units 05/07/18 17:30 05/18/18 16:43 Levemir Vial SQ 15 units TIDCM RASHID Administration Loperamide HCl 4 mg 05/07/18 15:11 Imodium - PO Q6H PRN DIARRHEA Magnesium Citrate 300 ml 05/07/18 15:11 05/12/18 09:39 Citroma - PO 300 ml Q48H PRN Administration CONSTIPATION Magnesium Hydroxide 30 ml 05/07/18 15:11 05/11/18 13:07 Milk Of Magnesia - PO 30 ml DAILY PRN Administration CONSTIPATION Melatonin 5 mg 05/07/18 22:00 05/10/18 21:05 Melatonin PO 5 mg HS PRN Administration INSOMNIA Methadone HCl 30 mg/ Methadone 35 mg 05/15/18 08:00 05/18/18 06:25 HCl 5 mg PO 05/23/18 07:59 35 mg DAILY@0600 RASHID Administration Nicotine 21 mg 05/08/18 10:00 05/18/18 09:26 Nicoderm Patch - TD 21 mg DAILY RASHID Administration Nicotine Polacrilex 2 mg 05/07/18 15:11 05/18/18 09:27 Nicorette Gum - BC 2 mg Q2H PRN Administration NICOTINE REPLACEMENT RX Multivit/Folic Acid/Iron 1 tab 05/08/18 10:00 05/18/18 09:26 Vitamins (Sjr) - PO 1 tab DAILY RASHID Administration Pseudoephedrine/Triprolidine 1 combo 05/07/18 15:11 Actifed - PO TID PRN NASAL CONGESTION Quetiapine Fumarate 100 mg 05/11/18 22:00 05/17/18 21:30 Seroquel - PO 100 mg HS RASHID Administration Quetiapine Fumarate 50 mg 05/19/18 10:00 Seroquel - PO DAILY RASHID Thiamine HCl 100 mg 05/07/18 22:00 05/17/18 21:30 Vitamin B1 - PO 100 mg HS RASHID Administration Medication(s) Change(s): Yes. Will add Seroquel 50mg daily. Current Side Effect: No Lab tests ordered: No Lab tests reviewed: Yes Provider note:: Patient seen by music writer for psychiatric reconsultation. Patient reports worsening anxiety, increase irritability , and mood instability. Patient with a diagnosis of PTSD, Anxiety disorder, and Mood disorder. Patient is currently prescribed seroquel 100mg HS + Prozac 60mg daily. Patient requesting to resume seroquel 50mg daily which is prescribed by her outpatient psychiatrist. Pharmacy claims reviewed and verified. Will restart Seroquel 50mg daily. Benefits and side effects discussed. Verbal consent given. Total face to face time:: 25 Mental Status Exam - Mental Status Exam Alert and Oriented to: Time, Place, Person Cognitive Function: Good Patient Appearance: Well Groomed Mood: Anxious Affect: Appropriate, Mood Congruent Speech Pattern: Appropriate Voice Loudness: Normal Thought Process: Intact, Goal Oriented Thought Disorder: Not Present Hallucinations: Denies Suicidal Ideation: Denies Homicidal Ideation: Denies Insight/Judgement: Poor Sleep: Fair Appetite: Fair Muscle strength/Tone: Normal Gait/Station: Normal Psychiatric Treatment Plan - Problem List (1) Mood disorder Current Visit: Yes (2) Benzodiazepine dependence Current Visit: Yes (3) Methadone maintenance therapy patient Current Visit: Yes (4) Opiate dependence Current Visit: Yes (5) PTSD (post-traumatic stress disorder) Current Visit: Yes (6) Anxiety disorder Current Visit: Yes
[2018-05-18] MEDS: QUEtiapine FUMARATE 100 MG TABLET (FP) PO SCH (21:22)
[2018-05-18] MEDS: THIAMINE HCL 100 MG TABLET (FP) PO SCH (21:22)
[2018-05-18] MEDS ORDERED: PT OWN MED DRAWER 7, Y5N ONE (23:22)
[2018-05-19] MEDS ORDERED: METHADONE HCL 10 MG TABLET ONE (05:33)
[2018-05-19] MEDS ORDERED: METHADONE HCL 5 MG TABLET ONE (05:33)
[2018-05-19] MEDS: GABAPENTIN 400 MG CAPSULE (FP) PO SCH ×3 (06:18→21:26)
[2018-05-19] MEDS: METHADONE 30 MG, METHADONE 5 MG PO SCH (07:18)
[2018-05-19] MEDS ORDERED: INSULIN (NOVOLOG) ASPART 100 UNITS/ML 10ML VIAL ONE ×4 (07:37→23:36)
[2018-05-19] MEDS: INSULIN SLIDING SCALE (NOVOLOG) 1 VIAL SQ SCH ×4 (07:52→21:29)
[2018-05-19] MEDS: INSULIN (LEVEMIR) 100 UNITS/ML UNITS SQ SCH ×3 (07:53→17:05)
[2018-05-19] MEDS: hydrOXYzine PAMOATE 50 MG CAPSULE (FP) PO PRN ×2 (08:53→21:26)
[2018-05-19] MEDS: NICOTINE 21 MG/24 HOURS TOPICAL PATCH TD SCH (10:20)
[2018-05-19] MEDS: PRENATAL VITAMINS W/ FOLIC ACID TABLET (FP) PO SCH (10:21)
[2018-05-19] MEDS: FLUoxetine HCL 20 MG CAPSULE (FP) PO SCH (10:21)
[2018-05-19] MEDS: QUEtiapine FUMARATE 50 MG TABLET PO SCH (10:21)
[2018-05-19] MEDS: NICOTINE POLACRILEX 2 MG GUM BC PRN (10:22)
[2018-05-19] MEDS: THIAMINE HCL 100 MG TABLET (FP) PO SCH (21:25)
[2018-05-19] MEDS: QUEtiapine FUMARATE 100 MG TABLET (FP) PO SCH (21:26)
[2018-05-19] MEDS ORDERED: INSULIN (LEVEMIR) 100 UNITS/ML UNITS SQ ONE (23:35)
[2018-05-20] MEDS ORDERED: METHADONE HCL 10 MG TABLET ONE (02:50)
[2018-05-20] MEDS ORDERED: METHADONE HCL 5 MG TABLET ONE (02:50)
[2018-05-20] MEDS: GABAPENTIN 400 MG CAPSULE (FP) PO SCH ×3 (06:26→21:30)
[2018-05-20] MEDS: METHADONE 30 MG, METHADONE 5 MG PO SCH (06:27)
[2018-05-20] MEDS: INSULIN SLIDING SCALE (NOVOLOG) 1 VIAL SQ SCH ×4 (06:28→21:33)
[2018-05-20] MEDS: INSULIN (LEVEMIR) 100 UNITS/ML UNITS SQ SCH ×3 (07:20→16:54)
[2018-05-20] MEDS ORDERED: INSULIN (NOVOLOG) ASPART 100 UNITS/ML 10ML VIAL ONE ×2 (07:33→11:46)
[2018-05-20] MEDS: IBUPROFEN 400 MG TABLET (FP) PO PRN (08:49)
[2018-05-20] MEDS: hydrOXYzine PAMOATE 50 MG CAPSULE (FP) PO PRN ×3 (10:43→21:30)
[2018-05-20] MEDS: QUEtiapine FUMARATE 50 MG TABLET PO SCH (10:43)
[2018-05-20] MEDS: PRENATAL VITAMINS W/ FOLIC ACID TABLET (FP) PO SCH (10:43)
[2018-05-20] MEDS: FLUoxetine HCL 20 MG CAPSULE (FP) PO SCH (10:43)
[2018-05-20] MEDS: NICOTINE 21 MG/24 HOURS TOPICAL PATCH TD SCH (10:44)
[2018-05-20] MEDS ORDERED: INSULIN (LEVEMIR) 100 UNITS/ML UNITS SQ ONE (11:47)
[2018-05-20] MEDS: ACETAMINOPHEN 325 MG TABLET (FP) PO PRN (14:37)
[2018-05-20] MEDS: QUEtiapine FUMARATE 100 MG TABLET (FP) PO SCH (21:30)
[2018-05-20] MEDS: THIAMINE HCL 100 MG TABLET (FP) PO SCH (21:30)
[2018-05-21] MEDS ORDERED: METHADONE HCL 5 MG TABLET ONE (05:54)
[2018-05-21] MEDS ORDERED: METHADONE HCL 10 MG TABLET ONE (05:55)
[2018-05-21] MEDS: GABAPENTIN 400 MG CAPSULE (FP) PO SCH (06:28)
[2018-05-21] MEDS: METHADONE 30 MG, METHADONE 5 MG PO SCH (06:28)
[2018-05-21 07:10] VITALS: BP 125/79; PULSE 82; TEMP 98
[2018-05-21] MEDS: INSULIN (LEVEMIR) 100 UNITS/ML UNITS SQ SCH (08:24)
[2018-05-21] MEDS: INSULIN SLIDING SCALE (NOVOLOG) 1 VIAL SQ SCH (08:24)
[2018-05-21] MEDS: NICOTINE 21 MG/24 HOURS TOPICAL PATCH TD SCH (09:10)
[2018-05-21] MEDS: FLUoxetine HCL 20 MG CAPSULE (FP) PO SCH (09:10)
[2018-05-21] MEDS: QUEtiapine FUMARATE 50 MG TABLET PO SCH (09:11)
[2018-05-21] MEDS: PRENATAL VITAMINS W/ FOLIC ACID TABLET (FP) PO SCH (09:11)
--- NOTE | 2018-05-21 09:27 | PN ---
[facility] Progress Note Note: Patient is discharged today. Scripts for 30 days supply of medications(Prozac, Seroquel) are electronically transmitted to [facility] at [address] [place] [id number]
--- NOTE | 2018-05-21 10:09 | PN ---
[facility] Progress Note Note: PT COMPLETED REHAB AND REFERRED TO [facility] AFTERCARE AT [facility] ON [address] AND BACK TO [facility] O[facility] FOR DAILY MAINTENANCE. PT REPORTS SHE HAS A PRIMARY CARE DOCTOR, DR. LEMUS AT [facility] ON [place], [place] FOR MEDICAL MANAGEMENT.PT REPORTS SHE HAS OWN MEDS WITH HER IN PROPERTY AND HAS APPOINTMENT TO FOLLOW UP WITH PMD NEXT WEEK. ALERT O X 3. DENIES S/H/I. Home Medications Medication Instructions Recorded Gabapentin [Neurontin -] 400 mg PO Q8H 05/07/18 Insulin Glargine,Hum.rec.anlog 15 unit SQ TIDCM 05/07/18 [Basaglar Kwikpen U-100] Methadone [Dolophine -] 35 mg PO DAILY 05/07/18 Quetiapine Fumarate [Seroquel -] 100 mg PO HS 05/07/18 Fluoxetine HCl [Prozac -] 60 mg PO DAILY #90 capsule 05/21/18 Quetiapine Fumarate [Seroquel -] 50 mg PO DAILY #30 tablet 05/21/18 Quetiapine Fumarate [Seroquel] 100 mg PO HS #30 tablet 05/21/18 Vital Signs (72 hours) 05/19/18 05/19/18 05/19/18 00:30 03:30 07:19 Temperature 97.7 F Pulse Rate 90 Respiratory 18 18 18 Rate Blood Pressure 125/82 05/20/18 05/20/18 05/20/18 00:30 03:30 07:09 Temperature 97.4 F L Pulse Rate 71 Respiratory 18 18 18 Rate Blood Pressure 134/85 05/21/18 05/21/18 05/21/18 00:30 03:30 07:09 Temperature 98.0 F Pulse Rate 82 Respiratory 18 18 18 Rate Blood Pressure 125/79 Laboratory Tests 05/07/18 05/07/18 05/07/18 15:14 17:51 22:04 WBC RBC Hgb Hct MCV MCH MCHC RDW Plt Count MPV Sodium Potassium Chloride Carbon Dioxide Anion Gap BUN Creatinine Creat Clearance w eGFR POC Glucometer 386 354 302 Random Glucose Calcium Total Bilirubin AST ALT Alkaline Phosphatase Total Protein Albumin Urine Color Urine Appearance Urine pH Ur Specific [place] Urine Protein Urine Glucose (UA) Urine Ketones Urine Blood Urine Nitrite Urine Bilirubin Urine Urobilinogen Ur Leukocyte Esterase Urine WBC (Auto) Urine RBC (Auto) Ur Epithelial Cells Urine Bacteria Urine Yeast RPR Titer 05/08/18 05/08/18 05/08/18 07:07 07:40 07:40 WBC 8.7 RBC 4.64 Hgb 14.8 Hct 42.6 MCV 91.7 MCH 31.8 MCHC 34.7 RDW 13.6 Plt Count 202 MPV 7.8 Sodium 136 Potassium 4.4 Chloride 103 Carbon Dioxide 27 Anion Gap 6 L BUN 13 Creatinine 0.7 Creat Clearance w eGFR > 60 POC Glucometer 265 Random Glucose 256 H Calcium 8.5 Total Bilirubin 0.2 AST 12 L ALT 22 Alkaline Phosphatase 87 Total Protein 7.7 Albumin 3.7 Urine Color Urine Appearance Urine pH Ur Specific [place] Urine Protein Urine Glucose (UA) Urine Ketones Urine Blood Urine Nitrite Urine Bilirubin Urine Urobilinogen Ur Leukocyte Esterase Urine WBC (Auto) Urine RBC (Auto) Ur Epithelial Cells Urine Bacteria Urine Yeast RPR Titer 05/08/18 05/08/18 05/08/18 07:40 07:40 11:50 WBC RBC Hgb Hct MCV MCH MCHC RDW Plt Count MPV Sodium Potassium Chloride Carbon Dioxide Anion Gap BUN Creatinine Creat Clearance w eGFR POC Glucometer 347 Random Glucose Calcium Total Bilirubin AST ALT Alkaline Phosphatase Total Protein Albumin Urine Color Ltyellow Urine Appearance Slcloudy Urine pH 6.0 Ur Specific [place] 1.035 Urine Protein Negative Urine Glucose (UA) 3+ H Urine Ketones Negative Urine Blood Negative Urine Nitrite Negative Urine Bilirubin Negative Urine Urobilinogen Negative Ur Leukocyte Esterase 1+ H Urine WBC (Auto) 6 Urine RBC (Auto) 6 Ur Epithelial Cells Many Urine Bacteria Rare Urine Yeast Rare RPR Titer Nonreactive 05/08/18 05/08/18 05/09/18 16:45 21:00 06:33 WBC RBC Hgb Hct MCV MCH MCHC RDW Plt Count MPV Sodium Potassium Chloride Carbon Dioxide Anion Gap BUN Creatinine Creat Clearance w eGFR POC Glucometer 366 381 245 Random Glucose Calcium Total Bilirubin AST ALT Alkaline Phosphatase Total Protein Albumin Urine Color Urine Appearance Urine pH Ur Specific [place] Urine Protein Urine Glucose (UA) Urine Ketones Urine Blood Urine Nitrite Urine Bilirubin Urine Urobilinogen Ur Leukocyte Esterase Urine WBC (Auto) Urine RBC (Auto) Ur Epithelial Cells Urine Bacteria Urine Yeast RPR Titer 05/09/18 05/09/18 05/09/18 11:33 16:31 20:52 WBC RBC Hgb Hct MCV MCH MCHC RDW Plt Count MPV Sodium Potassium Chloride Carbon Dioxide Anion Gap BUN Creatinine Creat Clearance w eGFR POC Glucometer 409 292 439 Random Glucose Calcium Total Bilirubin AST ALT Alkaline Phosphatase Total Protein Albumin Urine Color Urine Appearance Urine pH Ur Specific [place] Urine Protein Urine Glucose (UA) Urine Ketones Urine Blood Urine Nitrite Urine Bilirubin Urine Urobilinogen Ur Leukocyte Esterase Urine WBC (Auto) Urine RBC (Auto) Ur Epithelial Cells Urine Bacteria Urine Yeast RPR Titer 05/10/18 05/10/18 05/10/18 06:55 12:02 16:48 WBC RBC Hgb Hct MCV MCH MCHC RDW Plt Count MPV Sodium Potassium Chloride Carbon Dioxide Anion Gap BUN Creatinine Creat Clearance w eGFR POC Glucometer 283 487 335 Random Glucose Calcium Total Bilirubin AST ALT Alkaline Phosphatase Total Protein Albumin Urine Color Urine Appearance Urine pH Ur Specific [place] Urine Protein Urine Glucose (UA) Urine Ketones Urine Blood Urine Nitrite Urine Bilirubin Urine Urobilinogen Ur Leukocyte Esterase Urine WBC (Auto) Urine RBC (Auto) Ur Epithelial Cells Urine Bacteria Urine Yeast RPR Titer 05/10/18 05/11/18 05/11/18 20:53 06:47 12:00 WBC RBC Hgb Hct MCV MCH MCHC RDW Plt Count MPV Sodium Potassium Chloride Carbon Dioxide Anion Gap BUN Creatinine Creat Clearance w eGFR POC Glucometer 393 256 464 Random Glucose Calcium Total Bilirubin AST ALT Alkaline Phosphatase Total Protein Albumin Urine Color Urine Appearance Urine pH Ur Specific [place] Urine Protein Urine Glucose (UA) Urine Ketones Urine Blood Urine Nitrite Urine Bilirubin Urine Urobilinogen Ur Leukocyte Esterase Urine WBC (Auto) Urine RBC (Auto) Ur Epithelial Cells Urine Bacteria Urine Yeast RPR Titer 05/11/18 05/11/18 05/12/18 16:46 22:12 06:26 WBC RBC Hgb Hct MCV MCH MCHC RDW Plt Count MPV Sodium Potassium Chloride Carbon Dioxide Anion Gap BUN Creatinine Creat Clearance w eGFR POC Glucometer 357 421 223 Random Glucose Calcium Total Bilirubin AST ALT Alkaline Phosphatase Total Protein Albumin Urine Color Urine Appearance Urine pH Ur Specific [place] Urine Protein Urine Glucose (UA) Urine Ketones Urine Blood Urine Nitrite Urine Bilirubin Urine Urobilinogen Ur Leukocyte Esterase Urine WBC (Auto) Urine RBC (Auto) Ur Epithelial Cells Urine Bacteria Urine Yeast RPR Titer 05/12/18 05/12/18 05/12/18 11:54 17:12 21:20 WBC RBC Hgb Hct MCV MCH MCHC RDW Plt Count MPV Sodium Potassium Chloride Carbon Dioxide Anion Gap BUN Creatinine Creat Clearance w eGFR POC Glucometer 396 281 354 Random Glucose Calcium Total Bilirubin AST ALT Alkaline Phosphatase Total Protein Albumin Urine Color Urine Appearance Urine pH Ur Specific [place] Urine Protein Urine Glucose (UA) Urine Ketones Urine Blood Urine Nitrite Urine Bilirubin Urine Urobilinogen Ur Leukocyte Esterase Urine WBC (Auto) Urine RBC (Auto) Ur Epithelial Cells Urine Bacteria Urine Yeast RPR Titer 05/13/18 05/13/18 05/13/18 06:53 11:50 16:52 WBC RBC Hgb Hct MCV MCH MCHC RDW Plt Count MPV Sodium Potassium Chloride Carbon Dioxide Anion Gap BUN Creatinine Creat Clearance w eGFR POC Glucometer 238 321 381 Random Glucose Calcium Total Bilirubin AST ALT Alkaline Phosphatase Total Protein Albumin Urine Color Urine Appearance Urine pH Ur Specific [place] Urine Protein Urine Glucose (UA) Urine Ketones Urine Blood Urine Nitrite Urine Bilirubin Urine Urobilinogen Ur Leukocyte Esterase Urine WBC (Auto) Urine RBC (Auto) Ur Epithelial Cells Urine Bacteria Urine Yeast RPR Titer 05/13/18 05/14/18 05/14/18 20:53 06:22 11:49 WBC RBC Hgb Hct MCV MCH MCHC RDW Plt Count MPV Sodium Potassium Chloride Carbon Dioxide Anion Gap BUN Creatinine Creat Clearance w eGFR POC Glucometer 373 246 460 Random Glucose Calcium Total Bilirubin AST ALT Alkaline Phosphatase Total Protein Albumin Urine Color Urine Appearance Urine pH Ur Specific [place] Urine Protein Urine Glucose (UA) Urine Ketones Urine Blood Urine Nitrite Urine Bilirubin Urine Urobilinogen Ur Leukocyte Esterase Urine WBC (Auto) Urine RBC (Auto) Ur Epithelial Cells Urine Bacteria Urine Yeast RPR Titer 05/14/18 05/14/18 05/15/18 16:51 21:28 07:08 WBC RBC Hgb Hct MCV MCH MCHC RDW Plt Count MPV Sodium Potassium Chloride Carbon Dioxide Anion Gap BUN Creatinine Creat Clearance w eGFR POC Glucometer 338 367 273 Random Glucose Calcium Total Bilirubin AST ALT Alkaline Phosphatase Total Protein Albumin Urine Color Urine Appearance Urine pH Ur Specific [place] Urine Protein Urine Glucose (UA) Urine Ketones Urine Blood Urine Nitrite Urine Bilirubin Urine Urobilinogen Ur Leukocyte Esterase Urine WBC (Auto) Urine RBC (Auto) Ur Epithelial Cells Urine Bacteria Urine Yeast RPR Titer 05/15/18 05/15/18 05/15/18 12:03 12:50 16:52 WBC RBC Hgb Hct MCV MCH MCHC RDW Plt Count MPV Sodium Potassium Chloride Carbon Dioxide Anion Gap BUN Creatinine Creat Clearance w eGFR POC Glucometer 357 423 337 Random Glucose Calcium Total Bilirubin AST ALT Alkaline Phosphatase Total Protein Albumin Urine Color Urine Appearance Urine pH Ur Specific [place] Urine Protein Urine Glucose (UA) Urine Ketones Urine Blood Urine Nitrite Urine Bilirubin Urine Urobilinogen Ur Leukocyte Esterase Urine WBC (Auto) Urine RBC (Auto) Ur Epithelial Cells Urine Bacteria Urine Yeast RPR Titer 05/15/18 05/16/18 05/16/18 20:26 06:51 11:43 WBC RBC Hgb Hct MCV MCH MCHC RDW Plt Count MPV Sodium Potassium Chloride Carbon Dioxide Anion Gap BUN Creatinine Creat Clearance w eGFR POC Glucometer 309 328 400 Random Glucose Calcium Total Bilirubin AST ALT Alkaline Phosphatase Total Protein Albumin Urine Color Urine Appearance Urine pH Ur Specific [place] Urine Protein Urine Glucose (UA) Urine Ketones Urine Blood Urine Nitrite Urine Bilirubin Urine Urobilinogen Ur Leukocyte Esterase Urine WBC (Auto) Urine RBC (Auto) Ur Epithelial Cells Urine Bacteria Urine Yeast RPR Titer 05/16/18 05/16/18 05/17/18 16:33 20:43 06:52 WBC RBC Hgb Hct MCV MCH MCHC RDW Plt Count MPV Sodium Potassium Chloride Carbon Dioxide Anion Gap BUN Creatinine Creat Clearance w eGFR POC Glucometer 291 383 257 Random Glucose Calcium Total Bilirubin AST ALT Alkaline Phosphatase Total Protein Albumin Urine Color Urine Appearance Urine pH Ur Specific [place] Urine Protein Urine Glucose (UA) Urine Ketones Urine Blood Urine Nitrite Urine Bilirubin Urine Urobilinogen Ur Leukocyte Esterase Urine WBC (Auto) Urine RBC (Auto) Ur Epithelial Cells Urine Bacteria Urine Yeast RPR Titer 05/17/18 05/17/18 05/17/18 11:53 16:46 21:33 WBC RBC Hgb Hct MCV MCH MCHC RDW Plt Count MPV Sodium Potassium Chloride Carbon Dioxide Anion Gap BUN Creatinine Creat Clearance w eGFR POC Glucometer 457 323 346 Random Glucose Calcium Total Bilirubin AST ALT Alkaline Phosphatase Total Protein Albumin Urine Color Urine Appearance Urine pH Ur Specific [place] Urine Protein Urine Glucose (UA) Urine Ketones Urine Blood Urine Nitrite Urine Bilirubin Urine Urobilinogen Ur Leukocyte Esterase Urine WBC (Auto) Urine RBC (Auto) Ur Epithelial Cells Urine Bacteria Urine Yeast RPR Titer 05/18/18 05/18/18 05/18/18 06:24 11:32 16:34 WBC RBC Hgb Hct MCV MCH MCHC RDW Plt Count MPV Sodium Potassium Chloride Carbon Dioxide Anion Gap BUN Creatinine Creat Clearance w eGFR POC Glucometer 255 265 353 Random Glucose Calcium Total Bilirubin AST ALT Alkaline Phosphatase Total Protein Albumin Urine Color Urine Appearance Urine pH Ur Specific [place] Urine Protein Urine Glucose (UA) Urine Ketones Urine Blood Urine Nitrite Urine Bilirubin Urine Urobilinogen Ur Leukocyte Esterase Urine WBC (Auto) Urine RBC (Auto) Ur Epithelial Cells Urine Bacteria Urine Yeast RPR Titer 05/18/18 05/19/18 05/19/18 21:25 07:16 11:48 WBC RBC Hgb Hct MCV MCH MCHC RDW Plt Count MPV Sodium Potassium Chloride Carbon Dioxide Anion Gap BUN Creatinine Creat Clearance w eGFR POC Glucometer 422 229 337 Random Glucose Calcium Total Bilirubin AST ALT Alkaline Phosphatase Total Protein Albumin Urine Color Urine Appearance Urine pH Ur Specific [place] Urine Protein Urine Glucose (UA) Urine Ketones Urine Blood Urine Nitrite Urine Bilirubin Urine Urobilinogen Ur Leukocyte Esterase Urine WBC (Auto) Urine RBC (Auto) Ur Epithelial Cells Urine Bacteria Urine Yeast RPR Titer 05/19/18 05/19/18 05/20/18 17:04 21:28 06:26 WBC RBC Hgb Hct MCV MCH MCHC RDW Plt Count MPV Sodium Potassium Chloride Carbon Dioxide Anion Gap BUN Creatinine Creat Clearance w eGFR POC Glucometer 385 352 232 Random Glucose Calcium Total Bilirubin AST ALT Alkaline Phosphatase Total Protein Albumin Urine Color Urine Appearance Urine pH Ur Specific [place] Urine Protein Urine Glucose (UA) Urine Ketones Urine Blood Urine Nitrite Urine Bilirubin Urine Urobilinogen Ur Leukocyte Esterase Urine WBC (Auto) Urine RBC (Auto) Ur Epithelial Cells Urine Bacteria Urine Yeast RPR Titer 05/20/18 05/20/18 05/20/18 11:42 16:52 21:32 WBC RBC Hgb Hct MCV MCH MCHC RDW Plt Count MPV Sodium Potassium Chloride Carbon Dioxide Anion Gap BUN Creatinine Creat Clearance w eGFR POC Glucometer 346 306 414 Random Glucose Calcium Total Bilirubin AST ALT Alkaline Phosphatase Total Protein Albumin Urine Color Urine Appearance Urine pH Ur Specific [place] Urine Protein Urine Glucose (UA) Urine Ketones Urine Blood Urine Nitrite Urine Bilirubin Urine Urobilinogen Ur Leukocyte Esterase Urine WBC (Auto) Urine RBC (Auto) Ur Epithelial Cells Urine Bacteria Urine Yeast RPR Titer 05/21/18 06:26 WBC RBC Hgb Hct MCV MCH MCHC RDW Plt Count MPV Sodium Potassium Chloride Carbon Dioxide Anion Gap BUN Creatinine Creat Clearance w eGFR POC Glucometer 211 Random Glucose Calcium Total Bilirubin AST ALT Alkaline Phosphatase Total Protein Albumin Urine Color Urine Appearance Urine pH Ur Specific [place] Urine Protein Urine Glucose (UA) Urine Ketones Urine Blood Urine Nitrite Urine Bilirubin Urine Urobilinogen Ur Leukocyte Esterase Urine WBC (Auto) Urine RBC (Auto) Ur Epithelial Cells Urine Bacteria Urine Yeast RPR Titer NAD MEDICALLY STABLE PLAN: FOLLOW UP WITH [facility] RECOMMENDED ON 05/21/18 AT 1:00 P.M DISCUSSED WITH PT ABOUT FOLLOW UP WITH PMD DR. LEMUS WITH COPIES OF LABS FOR REVIEW AND MANAGEMENT OF COMORBID CONDITIONS ON HER VISIT NEXT WEEK.
== END 2018-05-21 09:22 | disposition home or self-care (01) | DRG 772 ==
LOC: YASAS 12:08 → Y3E 15:18
PROVIDERS: ADMIT Neuromusculoskeletal Medicine & OMM; ATTEND Neuromusculoskeletal Medicine & OMM
PROC: HZ42ZZZ Group Counseling for Substance Abuse Treatment, Cognitive-Behavioral (ICD-10-PCS; principal; 2018-05-07)
DX: F13.20 Sedative, hypnotic or anxiolytic dependence, uncomplicated (principal); F11.20 Opioid dependence, uncomplicated; F39 Unspecified mood [affective] disorder; F31.9 Bipolar disorder, unspecified; F43.10 Post-traumatic stress disorder, unspecified; Z79.4 Long term (current) use of insulin; Z91.5 Personal history of self-harm
CPT/HCPCS: 36415; 80053; 81003; 81015; 82962; 85027; 86593; 93005; 93010

== ENCOUNTER 2022-07-23 13:35 | Inpatient (IN) | payer OTHER ==
[2022-07-23 14:33] VITALS: BMI 27.4
[2022-07-23] MEDS ORDERED: LOPERAMIDE HCL 2 MG CAPSULE PO PRN (18:47)
[2022-07-23] MEDS ORDERED: NICOTINE POLACRILEX 2 MG GUM BUC PRN (18:47)
[2022-07-23] MEDS ORDERED: BENZOCAINE/MENTHOL (CHLORASEPTIC ) LOZENGE MM PRN (18:47)
[2022-07-23] MEDS ORDERED: NALOXONE HCL 0.4 MG/ML VIAL IM PRN (18:47)
[2022-07-23] MEDS ORDERED: NALOXONE HCL (KLOXXADO) 8 MG SPRAY NS PRN (18:47)
[2022-07-23] MEDS ORDERED: BENZONATATE 200 MG CAPSULE PO PRN (18:47)
[2022-07-23] MEDS ORDERED: MAG HYDROX/AL HYDROX/SIMETH 30 ML UNIT-DOSE CUP PO PRN (18:47)
[2022-07-23] MEDS ORDERED: POLYETHYLENE GLYCOL (HEALTHYLAX) 3350 17 GM PACKET PO PRN (18:47)
[2022-07-23] MEDS ORDERED: guaiFENesin 600 MG TABLET.ER (FP) PO PRN (18:47)
[2022-07-23] MEDS ORDERED: P-EPHED 60MG/TRIPROLIDI 2.5MG TABLET PO PRN (18:47)
[2022-07-23] MEDS ORDERED: AMMONIUM LACTATE 12% LOTION 225 GM BOTTLE TP PRN (18:47)
[2022-07-23] MEDS ORDERED: COLLOIDAL OATMEAL 1 BAR EACH TP PRN (18:47)
[2022-07-23] MEDS ORDERED: MAGNESIUM HYDROX 2400MG/30ML ORAL SUSPENSION 30 ML CUP PO PRN (18:47)
[2022-07-23] MEDS ORDERED: NICOTINE 7 MG/24 HOURS TOPICAL PATCH TD PRN (18:47)
[2022-07-23] MEDS: INSULIN SLIDING SCALE (NOVOLOG) 1 VIAL SQ SCH ×2 (19:58→22:56)
[2022-07-23] MEDS ORDERED: INSULIN (NOVOLOG) ASPART 100 UNITS/ML 10ML VIAL ONE (20:10)
[2022-07-23] MEDS ORDERED: MELATONIN 5 MG TABLETS PO SCH (22:00)
[2022-07-23] MEDS: THIAMINE HCL 100 MG TABLET (FP) PO SCH (23:10)
[2022-07-23] MEDS: LIDOCAINE PATCH REMOVAL MC SCH (23:51)
[2022-07-23] MEDS: LIDOCAINE 5% TOPICAL PATCH TP SCH (23:51)
[2022-07-24] MEDS: INSULIN SLIDING SCALE (NOVOLOG) 1 VIAL SQ SCH ×4 (07:01→21:11)
[2022-07-24] MEDS ORDERED: INSULIN (NOVOLOG) ASPART 100 UNITS/ML 10ML VIAL ONE ×2 (07:01→11:23)
[2022-07-24] MEDS ORDERED: TUBERCULIN PPD 5 TU/0.1ML VIAL ID ONE (09:21)
[2022-07-24] MEDS: LIDOCAINE 5% TOPICAL PATCH TP SCH (09:28)
[2022-07-24] MEDS: PRENATAL VITAMINS W/ FOLIC ACID TABLET (FP) PO SCH (09:28)
[2022-07-24] MEDS ORDERED: methaDONE HCL 10 MG TABLET PO SCH (10:45)
[2022-07-24 11:02] LABS: HEMATOCRIT 37.4 % (32.4-45.2); HEMOGLOBIN 13.1 GM/dL (10.7-15.3); MCH 31.1 pg (25.7-33.7); MEAN CELL VOLUME 88.8 fl (80-96); MEAN PLT VOLUME 7.8 fl (7.5-11.1); PLATELET COUNT 236 10^3/uL (134-434); RBC 4.21 M/mm3 (3.60-5.2); RDW 14.1 % (11.6-15.6); WHITE BLOOD COUNT 7.9 K/mm3 (4.0-10.0)
[2022-07-24 11:03] LABS: POTASSIUM 4.5 mmol/L (3.5-5.1)
[2022-07-24 11:10] LABS: ALBUMIN 3.5 g/dl (3.4-5.0); BLOOD UREA NITROGEN 15.5 mg/dL (7-18)
[2022-07-24 11:13] LABS: CREATININE 0.9 mg/dL (0.55-1.3)
[2022-07-24 11:15] LABS: BILIRUBIN,TOTAL 0.6 mg/dL (0.2-1); TOT PROT 7.4 g/dl (6.4-8.2)
[2022-07-24 11:30] LABS: SYPHILIS W/ RPR CONF NON-REACTIVE (NONREACTIVE)
[2022-07-24] MEDS: IBUPROFEN 600 MG TABLET (FP) PO PRN (14:39)
[2022-07-24] MEDS: ESCITALOPRAM OXALATE 10 MG TABLET PO SCH (14:40)
[2022-07-24 16:59] LABS: EPI CELLS 33 /uL (0-25.1); HYALINE CASTS 2 /uL (0-3.1); PH,URINE 5.5 (5.0-8.0); URINE APPEARANCE CLEAR; URINE BACTERIA 149 /uL (0-1359); URINE BILIRUBIN NEGATIVE (NEGATIVE); URINE COLOR YELLOW; URINE GLUCOSE (UA) 3+ (NEGATIVE); URINE KETONE TRACE (NEGATIVE); URINE LEUK ESTERASE TRACE (NEGATIVE); URINE NITRITE NEGATIVE (NEGATIVE); URINE PROTEIN TRACE (NEGATIVE); URINE RBC 39 /uL (0-23.9); URINE UROBILINOGEN 0.2 mg/dL (0.2-1.0); URINE WBC 60 /uL (0-25.8)
[2022-07-24] MEDS: BACLOFEN 10 MG TABLET (FP) PO PRN (20:47)
[2022-07-24] MEDS: THIAMINE HCL 100 MG TABLET (FP) PO SCH (21:09)
[2022-07-24] MEDS: LIDOCAINE PATCH REMOVAL MC SCH (21:10)
[2022-07-24] MEDS ORDERED: QUEtiapine FUMARATE 50 MG TABLET PO SCH (22:00)
[2022-07-25] MEDS ORDERED: INSULIN (NOVOLOG) ASPART 100 UNITS/ML 10ML VIAL ONE ×2 (07:18→11:00)
[2022-07-25] MEDS: INSULIN SLIDING SCALE (NOVOLOG) 1 VIAL SQ SCH ×4 (07:36→21:06)
[2022-07-25] MEDS: BACLOFEN 10 MG TABLET (FP) PO PRN ×2 (07:54→16:54)
[2022-07-25] MEDS: PRENATAL VITAMINS W/ FOLIC ACID TABLET (FP) PO SCH (09:37)
[2022-07-25] MEDS: ESCITALOPRAM OXALATE 10 MG TABLET PO SCH (09:38)
[2022-07-25] MEDS: LIDOCAINE 5% TOPICAL PATCH TP SCH (09:39)
[2022-07-25] MEDS: hydrOXYzine PAMOATE 25 MG CAPSULE (FP) PO PRN ×2 (11:37→21:04)
[2022-07-25] MEDS: IBUPROFEN 600 MG TABLET (FP) PO PRN ×2 (11:37→21:04)
[2022-07-25] MEDS ORDERED: cloNIDine HCL 0.1 MG TABLET PO ONE (19:09)
[2022-07-25] MEDS: THIAMINE HCL 100 MG TABLET (FP) PO SCH (21:04)
[2022-07-25] MEDS: QUEtiapine FUMARATE 200 MG TABLET PO SCH (21:09)
[2022-07-25] MEDS: DIVALPROEX SODIUM 500 MG TABLET E.C. PO SCH (21:47)
[2022-07-25] MEDS: LIDOCAINE PATCH REMOVAL MC SCH (21:47)
[2022-07-25] MEDS: cloNIDine HCL 0.1 MG TABLET PO SCH (21:51)
[2022-07-26] MEDS: INSULIN SLIDING SCALE (NOVOLOG) 1 VIAL SQ SCH ×4 (06:42→21:12)
[2022-07-26] MEDS: PRENATAL VITAMINS W/ FOLIC ACID TABLET (FP) PO SCH (09:37)
[2022-07-26] MEDS: cloNIDine HCL 0.1 MG TABLET PO SCH ×2 (09:37→21:08)
[2022-07-26] MEDS: LIDOCAINE 5% TOPICAL PATCH TP SCH (09:37)
[2022-07-26] MEDS: ESCITALOPRAM OXALATE 10 MG TABLET PO SCH (09:37)
[2022-07-26] MEDS: IBUPROFEN 600 MG TABLET (FP) PO PRN (11:09)
[2022-07-26] MEDS: hydrOXYzine PAMOATE 25 MG CAPSULE (FP) PO PRN (11:09)
[2022-07-26] MEDS ORDERED: INSULIN (NOVOLOG) ASPART 100 UNITS/ML 10ML VIAL ONE ×2 (11:50→16:19)
[2022-07-26] MEDS: BACLOFEN 10 MG TABLET (FP) PO PRN (14:45)
[2022-07-26] MEDS: THIAMINE HCL 100 MG TABLET (FP) PO SCH (21:08)
[2022-07-26] MEDS: QUEtiapine FUMARATE 200 MG TABLET PO SCH (21:08)
[2022-07-26] MEDS: DIVALPROEX SODIUM 500 MG TABLET E.C. PO SCH (21:08)
[2022-07-26] MEDS: LIDOCAINE PATCH REMOVAL MC SCH (22:07)
[2022-07-27] MEDS: INSULIN SLIDING SCALE (NOVOLOG) 1 VIAL SQ SCH ×4 (06:22→21:30)
[2022-07-27] MEDS: ESCITALOPRAM OXALATE 10 MG TABLET PO SCH (09:40)
[2022-07-27] MEDS: PRENATAL VITAMINS W/ FOLIC ACID TABLET (FP) PO SCH (09:40)
[2022-07-27] MEDS: cloNIDine HCL 0.1 MG TABLET PO SCH ×2 (09:40→21:25)
[2022-07-27] MEDS: ACETAMINOPHEN 325 MG TABLET (FP) PO PRN (09:40)
[2022-07-27] MEDS: hydrOXYzine PAMOATE 25 MG CAPSULE (FP) PO PRN ×2 (09:41→16:47)
[2022-07-27] MEDS: LIDOCAINE 5% TOPICAL PATCH TP SCH (09:42)
[2022-07-27] MEDS ORDERED: INSULIN (NOVOLOG) ASPART 100 UNITS/ML 10ML VIAL ONE ×2 (12:02→16:35)
[2022-07-27] MEDS: BACLOFEN 10 MG TABLET (FP) PO PRN ×2 (15:00→21:25)
[2022-07-27] MEDS: QUEtiapine FUMARATE 200 MG TABLET PO SCH (21:25)
[2022-07-27] MEDS: DIVALPROEX SODIUM 500 MG TABLET E.C. PO SCH (21:25)
[2022-07-27] MEDS: THIAMINE HCL 100 MG TABLET (FP) PO SCH (21:25)
[2022-07-27] MEDS: LIDOCAINE PATCH REMOVAL MC SCH (21:48)
[2022-07-28] MEDS: INSULIN SLIDING SCALE (NOVOLOG) 1 VIAL SQ SCH ×4 (06:39→21:06)
[2022-07-28] MEDS ORDERED: INSULIN (NOVOLOG) ASPART 100 UNITS/ML 10ML VIAL ONE ×3 (06:40→16:50)
[2022-07-28] MEDS: IBUPROFEN 600 MG TABLET (FP) PO PRN (08:52)
[2022-07-28] MEDS: BACLOFEN 10 MG TABLET (FP) PO PRN ×2 (08:52→20:12)
[2022-07-28] MEDS: PRENATAL VITAMINS W/ FOLIC ACID TABLET (FP) PO SCH (09:37)
[2022-07-28] MEDS: ESCITALOPRAM OXALATE 10 MG TABLET PO SCH (09:38)
[2022-07-28] MEDS: cloNIDine HCL 0.1 MG TABLET PO SCH ×2 (09:38→21:07)
[2022-07-28] MEDS: hydrOXYzine PAMOATE 25 MG CAPSULE (FP) PO PRN ×2 (09:39→17:26)
[2022-07-28] MEDS: LIDOCAINE 5% TOPICAL PATCH TP SCH (09:39)
[2022-07-28] MEDS ORDERED: LIRAGLUTIDE 0.6 MG/0.1 ML PEN.INJCTR SQ SCH (11:00)
[2022-07-28] MEDS: ACETAMINOPHEN 325 MG TABLET (FP) PO PRN (14:00)
[2022-07-28] MEDS: LIRAGLUTIDE 0.6 MG/0.1 ML PEN.INJCTR SQ SCH (14:14)
[2022-07-28] MEDS: IBUPROFEN 400 MG TABLET (FP) PO PRN (16:56)
[2022-07-28] MEDS: THIAMINE HCL 100 MG TABLET (FP) PO SCH (21:07)
[2022-07-28] MEDS: QUEtiapine FUMARATE 200 MG TABLET PO SCH (21:07)
[2022-07-28] MEDS: DIVALPROEX SODIUM 500 MG TABLET E.C. PO SCH (21:07)
[2022-07-28] MEDS: METHYL SALICYLATE/MENTHOL OINT 30 GM TUBE TP PRN (21:08)
[2022-07-28] MEDS: LIDOCAINE PATCH REMOVAL MC SCH (21:08)
[2022-07-29] MEDS: INSULIN SLIDING SCALE (NOVOLOG) 1 VIAL SQ SCH ×4 (06:06→21:12)
[2022-07-29] MEDS ORDERED: INSULIN (NOVOLOG) ASPART 100 UNITS/ML 10ML VIAL ONE ×4 (06:06→21:40)
[2022-07-29] MEDS: PRENATAL VITAMINS W/ FOLIC ACID TABLET (FP) PO SCH (09:42)
[2022-07-29] MEDS: ESCITALOPRAM OXALATE 10 MG TABLET PO SCH (09:42)
[2022-07-29] MEDS: cloNIDine HCL 0.1 MG TABLET PO SCH ×2 (09:42→21:07)
[2022-07-29] MEDS: LIDOCAINE 5% TOPICAL PATCH TP SCH (09:43)
[2022-07-29] MEDS: LIRAGLUTIDE 0.6 MG/0.1 ML PEN.INJCTR SQ SCH (09:43)
[2022-07-29] MEDS: BACLOFEN 10 MG TABLET (FP) PO PRN ×2 (09:45→18:51)
[2022-07-29] MEDS: hydrOXYzine PAMOATE 25 MG CAPSULE (FP) PO PRN (12:14)
[2022-07-29] MEDS: IBUPROFEN 400 MG TABLET (FP) PO PRN (18:50)
[2022-07-29] MEDS: DIVALPROEX SODIUM 500 MG TABLET E.C. PO SCH (21:06)
[2022-07-29] MEDS: THIAMINE HCL 100 MG TABLET (FP) PO SCH (21:07)
[2022-07-29] MEDS: QUEtiapine FUMARATE 200 MG TABLET PO SCH (21:07)
[2022-07-29] MEDS: LIDOCAINE PATCH REMOVAL MC SCH (21:07)
[2022-07-29] MEDS: METHYL SALICYLATE/MENTHOL OINT 30 GM TUBE TP PRN (21:08)
[2022-07-30] MEDS: INSULIN SLIDING SCALE (NOVOLOG) 1 VIAL SQ SCH ×4 (06:51→21:07)
[2022-07-30] MEDS ORDERED: INSULIN (NOVOLOG) ASPART 100 UNITS/ML 10ML VIAL ONE ×3 (07:37→16:35)
[2022-07-30] MEDS: hydrOXYzine PAMOATE 25 MG CAPSULE (FP) PO PRN (09:16)
[2022-07-30] MEDS: LIRAGLUTIDE 0.6 MG/0.1 ML PEN.INJCTR SQ SCH (09:32)
[2022-07-30] MEDS: PRENATAL VITAMINS W/ FOLIC ACID TABLET (FP) PO SCH (09:33)
[2022-07-30] MEDS: ESCITALOPRAM OXALATE 10 MG TABLET PO SCH (09:33)
[2022-07-30] MEDS: LIDOCAINE 5% TOPICAL PATCH TP SCH (09:33)
[2022-07-30] MEDS: cloNIDine HCL 0.1 MG TABLET PO SCH ×2 (09:33→21:02)
[2022-07-30] MEDS: IBUPROFEN 400 MG TABLET (FP) PO PRN (17:03)
[2022-07-30] MEDS: THIAMINE HCL 100 MG TABLET (FP) PO SCH (21:01)
[2022-07-30] MEDS: DIVALPROEX SODIUM 500 MG TABLET E.C. PO SCH (21:01)
[2022-07-30] MEDS: BACLOFEN 10 MG TABLET (FP) PO PRN (21:02)
[2022-07-30] MEDS: QUEtiapine FUMARATE 200 MG TABLET PO SCH (21:02)
[2022-07-30] MEDS: LIDOCAINE PATCH REMOVAL MC SCH (21:39)
[2022-07-31] MEDS: INSULIN SLIDING SCALE (NOVOLOG) 1 VIAL SQ SCH ×4 (07:20→21:14)
[2022-07-31] MEDS: LIRAGLUTIDE 0.6 MG/0.1 ML PEN.INJCTR SQ SCH (09:58)
[2022-07-31] MEDS: PRENATAL VITAMINS W/ FOLIC ACID TABLET (FP) PO SCH (10:00)
[2022-07-31] MEDS: cloNIDine HCL 0.1 MG TABLET PO SCH ×2 (10:00→21:16)
[2022-07-31] MEDS: ESCITALOPRAM OXALATE 10 MG TABLET PO SCH (10:00)
[2022-07-31] MEDS: LIDOCAINE 5% TOPICAL PATCH TP SCH (10:00)
[2022-07-31] MEDS: BACLOFEN 10 MG TABLET (FP) PO PRN ×2 (10:01→21:16)
[2022-07-31] MEDS: TOLNAFTATE 1% CREAM 15 GM TUBE TP SCH ×2 (10:01→21:43)
[2022-07-31] MEDS ORDERED: INSULIN (NOVOLOG) ASPART 100 UNITS/ML 10ML VIAL ONE ×2 (12:06→16:52)
[2022-07-31] MEDS: hydrOXYzine PAMOATE 25 MG CAPSULE (FP) PO PRN ×2 (12:07→21:16)
[2022-07-31] MEDS: IBUPROFEN 600 MG TABLET (FP) PO PRN (14:41)
[2022-07-31] MEDS: DIVALPROEX SODIUM 500 MG TABLET E.C. PO SCH (21:16)
[2022-07-31] MEDS: THIAMINE HCL 100 MG TABLET (FP) PO SCH (21:16)
[2022-07-31] MEDS: QUEtiapine FUMARATE 200 MG TABLET PO SCH (21:16)
[2022-07-31] MEDS: LIDOCAINE PATCH REMOVAL MC SCH (21:43)
[2022-08-01] MEDS: INSULIN SLIDING SCALE (NOVOLOG) 1 VIAL SQ SCH ×4 (07:09→21:18)
[2022-08-01] MEDS ORDERED: INSULIN (NOVOLOG) ASPART 100 UNITS/ML 10ML VIAL ONE (07:09)
[2022-08-01] MEDS: LIRAGLUTIDE 0.6 MG/0.1 ML PEN.INJCTR SQ SCH (09:55)
[2022-08-01] MEDS: cloNIDine HCL 0.1 MG TABLET PO SCH ×2 (09:57→21:15)
[2022-08-01] MEDS: TOLNAFTATE 1% CREAM 15 GM TUBE TP SCH ×2 (09:57→21:20)
[2022-08-01] MEDS: PRENATAL VITAMINS W/ FOLIC ACID TABLET (FP) PO SCH (09:57)
[2022-08-01] MEDS: LIDOCAINE 5% TOPICAL PATCH TP SCH (09:57)
[2022-08-01] MEDS: ESCITALOPRAM OXALATE 10 MG TABLET PO SCH (09:57)
[2022-08-01] MEDS: BACLOFEN 10 MG TABLET (FP) PO PRN (15:55)
[2022-08-01] MEDS: DIVALPROEX SODIUM 500 MG TABLET E.C. PO SCH (21:15)
[2022-08-01] MEDS: THIAMINE HCL 100 MG TABLET (FP) PO SCH (21:15)
[2022-08-01] MEDS: LIDOCAINE PATCH REMOVAL MC SCH (21:15)
[2022-08-01] MEDS: QUEtiapine FUMARATE 200 MG TABLET PO SCH (21:15)
[2022-08-01 22:24] VITALS: RESP 18
[2022-08-02] MEDS ORDERED: INSULIN (NOVOLOG) ASPART 100 UNITS/ML 10ML VIAL ONE ×4 (06:58→16:52)
[2022-08-02] MEDS: INSULIN SLIDING SCALE (NOVOLOG) 1 VIAL SQ SCH ×3 (06:59→17:01)
[2022-08-02] MEDS: ESCITALOPRAM OXALATE 10 MG TABLET PO SCH (09:57)
[2022-08-02] MEDS: cloNIDine HCL 0.1 MG TABLET PO SCH (09:57)
[2022-08-02] MEDS: PRENATAL VITAMINS W/ FOLIC ACID TABLET (FP) PO SCH (09:58)
[2022-08-02] MEDS: LIDOCAINE 5% TOPICAL PATCH TP SCH (09:58)
[2022-08-02] MEDS: TOLNAFTATE 1% CREAM 15 GM TUBE TP SCH (09:58)
[2022-08-02] MEDS: hydrOXYzine PAMOATE 25 MG CAPSULE (FP) PO PRN (09:59)
[2022-08-02] MEDS: LIRAGLUTIDE 0.6 MG/0.1 ML PEN.INJCTR SQ SCH (10:54)
[2022-08-02] MEDS: BACLOFEN 10 MG TABLET (FP) PO PRN (12:09)
[2022-08-02] MEDS: IBUPROFEN 400 MG TABLET (FP) PO PRN (12:09)
[2022-08-02 22:26] VITALS: TEMP 95.7
[2022-08-02] MEDS ORDERED: TRIMETHOBENZAMIDE HCL 200MG/2ML INJ IM ONE (22:43)
[2022-08-02 22:59] VITALS: BP 169/76; PULSE 85
[2022-08-03] MEDS: DIVALPROEX SODIUM 500 MG TABLET E.C. PO SCH (00:01)
[2022-08-03] MEDS: cloNIDine HCL 0.1 MG TABLET PO SCH (00:01)
[2022-08-03] MEDS: LIDOCAINE PATCH REMOVAL MC SCH (00:01)
[2022-08-03] MEDS: THIAMINE HCL 100 MG TABLET (FP) PO SCH (00:02)
[2022-08-03] MEDS: INSULIN SLIDING SCALE (NOVOLOG) 1 VIAL SQ SCH ×2 (00:02→07:34)
[2022-08-03] MEDS: QUEtiapine FUMARATE 200 MG TABLET PO SCH (00:02)
[2022-08-03] MEDS: TOLNAFTATE 1% CREAM 15 GM TUBE TP SCH (00:02)
== END 2022-08-02 23:55 | disposition short-term general hospital (02) | DRG 772 ==
LOC: YASAS 13:35 → Y5N 21:50
PROVIDERS: ADMIT Allergy & Immunology; ATTEND Surgery
PROC: HZ42ZZZ Group Counseling for Substance Abuse Treatment, Cognitive-Behavioral (ICD-10-PCS; principal; 2022-07-28)
DX: F11.20 Opioid dependence, uncomplicated (principal); F12.20 Cannabis dependence, uncomplicated; F17.210 Nicotine dependence, cigarettes, uncomplicated; F19.282 Other psychoactive substance dependence with psychoactive substance-induced sleep disorder; F19.24 Other psychoactive substance dependence with psychoactive substance-induced mood disorder; F31.9 Bipolar disorder, unspecified; F41.9 Anxiety disorder, unspecified; F43.10 Post-traumatic stress disorder, unspecified; E11.9 Type 2 diabetes mellitus without complications; Z79.85 Long-term (current) use of injectable non-insulin antidiabetic drugs; B35.1 Tinea unguium; R10.9 Unspecified abdominal pain; R11.2 Nausea with vomiting, unspecified; S49.82XD Other specified injuries of left shoulder and upper arm, subsequent encounter; W19.XXXD Unspecified fall, subsequent encounter; Z56.0 Unemployment, unspecified
CPT/HCPCS: 36415; 73030-TC-LT-FY; 80053; 80164; 80178; 81003; 81025; 82962; 85027; 86780; 86803; 87811; C9803-CS; G0480; J0475; U0003; U0005

== ENCOUNTER 2022-08-02 23:37 | Inpatient (IN) | payer OTHER ==
[2022-08-03] MEDS ORDERED: ONDANSETRON *ODT* 4 MG TABLET ONE (01:33)
[2022-08-03] MEDS ORDERED: ONDANSETRON *ODT* 4 MG TABLET SL ONE (01:51)
[2022-08-03] MEDS ORDERED: SODIUM CHLORIDE 0.9% 500 ML INFUS.BAG IV ONE ×2 (01:52→05:46)
[2022-08-03] MEDS ORDERED: FAMOTIDINE 20 MG TABLET PO ONE (01:52)
[2022-08-03] MEDS ORDERED: ACETAMINOPHEN 500 MG TABLET (FP) PO ONE (01:53)
[2022-08-03] MEDS ORDERED: ACETAMINOPHEN 1000 MG/100 ML BAG IVPB ONE (02:27)
[2022-08-03] MEDS ORDERED: FAMOTIDINE 20 MG/50 ML IVPB 20 MG/50 ML MG IVPB ONE ×2 (02:27→02:36)
[2022-08-03] MEDS ORDERED: ACETAMINOPHEN INJECTION 100 ML IVPB ONE (02:36)
[2022-08-03 02:45] LABS: BASO % 0.4 % (0-2.0); EOS % 0.1 % (0-4.5); HEMATOCRIT 41.2 % (32.4-45.2); LYMPH % 6.3 % (8-40); MCH 29.8 pg (25.7-33.7); MEAN CELL VOLUME 87.6 fl (80-96); MEAN PLT VOLUME 6.8 fl (7.5-11.1); MONO % 7.4 % (3.8-10.2); NEUT % 85.8 % (42.8-82.8); PLATELET COUNT 292 10^3/uL (134-434); RBC 4.71 M/mm3 (3.60-5.2); RDW 13.6 % (11.6-15.6); WHITE BLOOD COUNT 20.6 K/mm3 (4.0-10.0)
[2022-08-03 03:07] LABS: POTASSIUM 4.1 mmol/L (3.5-5.1)
[2022-08-03 03:09] LABS: BLOOD UREA NITROGEN 17.9 mg/dL (7-18); CALCIUM 10.1 mg/dL (8.5-10.1)
[2022-08-03 03:13] LABS: PHOSPHOROUS 3.8 mg/dL (2.5-4.9)
[2022-08-03 03:14] LABS: BILIRUBIN,TOTAL 0.4 mg/dL (0.2-1); TOT PROT 8.4 g/dl (6.4-8.2)
[2022-08-03] MEDS ORDERED: TRIMETHOBENZAMIDE HCL 200MG/2ML INJ IM ONE ×2 (04:02→04:12)
[2022-08-03 04:31] LABS: PH,URINE 7.5 (5.0-8.0); URINE APPEARANCE CLEAR; URINE BILIRUBIN NEGATIVE (NEGATIVE); URINE COLOR YELLOW; URINE GLUCOSE (UA) 3+ (NEGATIVE); URINE KETONE TRACE (NEGATIVE); URINE LEUK ESTERASE NEGATIVE (NEGATIVE); URINE NITRITE NEGATIVE (NEGATIVE); URINE PROTEIN NEGATIVE (NEGATIVE); URINE UROBILINOGEN 0.2 mg/dL (0.2-1.0)
[2022-08-03 04:33] LABS: HCG,QUALITATIVE URINE Negative
[2022-08-03] MEDS ORDERED: PROCHLORPERAZINE INJECTION 10 MG/2 ML VIAL IVPB ONE (05:56)
[2022-08-03] MEDS ORDERED: PROCHLORPERAZINE INJECTION 10 MG/2 ML VIAL ONE (06:02)
[2022-08-03] MEDS ORDERED: CEFTRIAXONE 1 GM in DEXTROSE 5%-WATER - 50 ML IVPB ONE (10:01)
[2022-08-03] MEDS ORDERED: CEFTRIAXONE 1 GM/50 ML BAG ONE (10:08)
[2022-08-03] MEDS ORDERED: TRIMETHOBENZAMIDE HCL 200MG/2ML INJ IM PRN (10:14)
[2022-08-03] MEDS ORDERED: D5-1/2NS+20 MEQ KCL - 20 MEQ/1,000 ML INFUS.BAG IV SCH (10:15)
[2022-08-03] MEDS: INSULIN SLIDING SCALE (NOVOLOG) 1 VIAL SQ SCH ×3 (11:10→21:39)
[2022-08-03] MEDS ORDERED: methaDONE HCL 10 MG TABLET (FOR DETOX USE ONLY) PO ONE (14:30)
[2022-08-03] MEDS ORDERED: methaDONE HCL 10 MG TABLET ONE (14:36)
[2022-08-03] MEDS ORDERED: methaDONE HCL 40 MG DISPERSABLE TABLET ONE (14:36)
[2022-08-03] MEDS ORDERED: GABAPENTIN 400 MG CAPSULE ONE (14:37)
[2022-08-03] MEDS: GABAPENTIN 400 MG CAPSULE PO SCH ×2 (14:49→21:32)
[2022-08-03] MEDS ORDERED: PEG 3350/NA SULF BICARB CL/KCL 4000 ML SOLN.RECON PO ONE (16:00)
[2022-08-03 16:17] VITALS: BMI 27.2
[2022-08-03] MEDS: SODIUM CHLORIDE 0.45%/POT 20 MEQ/1,000 ML INFUS.BAG IV SCH (17:29)
[2022-08-03 20:44] LABS: OPIATES, URI NEGATIVE (NEGATIVE); PHENCYCLIDINE,URINE NEGATIVE (NEGATIVE); URINE AMPHETAMINES NEGATIVE (NEGATIVE); URINE BENZODIAZEPINES NEGATIVE (NEGATIVE)
[2022-08-03 21:06] LABS: COCAINE, UR NEGATIVE (NEGATIVE); METHADONE, UR POSITIVE (NEGATIVE); URINE BARBITURATES NEGATIVE (NEGATIVE)
[2022-08-03] MEDS ORDERED: QUEtiapine FUMARATE 50 MG TABLET ONE (21:28)
[2022-08-03] MEDS: QUEtiapine FUMARATE 100 MG TABLET (FP) PO SCH ×2 (21:34→22:30)
[2022-08-03] MEDS: cloNIDine HCL 0.1 MG TABLET PO SCH (21:34)
[2022-08-03] MEDS ORDERED: HEPARIN NA (PORCINE) 5,000 UNITS/ML 1ML VIAL SQ SCH (22:00)
[2022-08-04] MEDS: ACETAMINOPHEN 1000 MG/100 ML BAG IVPB PRN ×3 (00:40→21:26)
[2022-08-04] MEDS: INSULIN SLIDING SCALE (NOVOLOG) 1 VIAL SQ SCH ×4 (06:17→21:48)
[2022-08-04] MEDS: GABAPENTIN 400 MG CAPSULE PO SCH (06:17)
[2022-08-04] MEDS: SODIUM CHLORIDE 0.45%/POT 20 MEQ/1,000 ML INFUS.BAG IV SCH ×2 (06:19→10:22)
[2022-08-04 09:30] LABS: BASO % 0.4 % (0-2.0); EOS % 2.3 % (0-4.5); HEMATOCRIT 35.9 % (32.4-45.2); HEMOGLOBIN 12.4 GM/dL (10.7-15.3); LYMPH % 32.4 % (8-40); MCH 30.5 pg (25.7-33.7); MCHC 34.5 g/dl (32.0-36.0); MEAN CELL VOLUME 88.5 fl (80-96); MEAN PLT VOLUME 7.5 fl (7.5-11.1); MONO % 6.3 % (3.8-10.2); NEUT % 58.6 % (42.8-82.8); PLATELET COUNT 224 10^3/uL (134-434); RBC 4.06 M/mm3 (3.60-5.2); RDW 13.4 % (11.6-15.6)
[2022-08-04 09:37] LABS: INR 1.17 (0.83-1.09); PROTHROMBIN TIME (PATIENT) 13.6 SEC (9.7-13.0)
[2022-08-04 09:45] LABS: POTASSIUM 3.9 mmol/L (3.5-5.1)
[2022-08-04 09:54] LABS: ALBUMIN 3.3 g/dl (3.4-5.0); BLOOD UREA NITROGEN 9.6 mg/dL (7-18); CALCIUM 8.9 mg/dL (8.5-10.1)
[2022-08-04 09:58] LABS: CREATININE 0.6 mg/dL (0.55-1.3)
[2022-08-04 09:59] LABS: TOT PROT 6.9 g/dl (6.4-8.2)
[2022-08-04 10:00] LABS: BILIRUBIN,TOTAL 0.4 mg/dL (0.2-1)
[2022-08-04] MEDS ORDERED: methaDONE HCL 10 MG TABLET PO SCH (10:00)
[2022-08-04] MEDS: cloNIDine HCL 0.1 MG TABLET PO SCH ×2 (10:21→21:27)
[2022-08-04] MEDS: CEFTRIAXONE 1 GM in DEXTROSE 5%-WATER - 50 ML IVPB SCH (10:21)
[2022-08-04] MEDS: LITHIUM CARBONATE 300 MG CAPSULE PO SCH ×3 (10:23→21:28)
[2022-08-04] MEDS ORDERED: INSULIN (NOVOLOG) ASPART 100 UNITS/ML 10ML VIAL ONE ×2 (11:32→21:36)
[2022-08-04] MEDS ORDERED: methaDONE HCL 10 MG TABLET PO ONE (14:26)
[2022-08-04] MEDS ORDERED: LIDOCAINE 5% TOPICAL PATCH TP ONE (20:52)
[2022-08-04] MEDS ORDERED: LIDOCAINE PATCH REMOVAL MC SCH (22:00)
[2022-08-04] MEDS ORDERED: QUEtiapine FUMARATE 200 MG TABLET PO SCH (22:00)
[2022-08-04] MEDS ORDERED: DIVALPROEX SODIUM 500 MG TABLET E.C. PO SCH (22:00)
[2022-08-05] MEDS: LITHIUM CARBONATE 300 MG CAPSULE PO SCH ×2 (06:16→14:24)
[2022-08-05] MEDS: INSULIN SLIDING SCALE (NOVOLOG) 1 VIAL SQ SCH ×3 (06:20→17:48)
[2022-08-05] MEDS: SODIUM CHLORIDE 0.45%/POT 20 MEQ/1,000 ML INFUS.BAG IV SCH ×2 (07:11→16:07)
[2022-08-05 08:39] LABS: BASO % 0.6 % (0-2.0); HEMATOCRIT 34.3 % (32.4-45.2); LYMPH % 48.5 % (8-40); MCH 30.6 pg (25.7-33.7); MCHC 34.9 g/dl (32.0-36.0); MEAN CELL VOLUME 87.7 fl (80-96); MEAN PLT VOLUME 7.1 fl (7.5-11.1); MONO % 6.4 % (3.8-10.2); NEUT % 40.5 % (42.8-82.8); PLATELET COUNT 214 10^3/uL (134-434); RBC 3.91 M/mm3 (3.60-5.2); RDW 13.5 % (11.6-15.6); WHITE BLOOD COUNT 7.2 K/mm3 (4.0-10.0)
[2022-08-05 08:55] LABS: POTASSIUM 4.2 mmol/L (3.5-5.1)
[2022-08-05 08:58] LABS: CALCIUM 8.9 mg/dL (8.5-10.1)
[2022-08-05 08:59] LABS: BLOOD UREA NITROGEN 7.6 mg/dL (7-18); MAGNESIUM 2.2 mg/dL (1.8-2.4)
[2022-08-05 09:02] LABS: CREATININE 0.7 mg/dL (0.55-1.3)
[2022-08-05 09:39] VITALS: RESP 18
[2022-08-05] MEDS ORDERED: DOCUSATE SODIUM 100 MG CAPSULE (FP) PO ONE (10:45)
[2022-08-05] MEDS ORDERED: SENNOSIDES 8.6MG TABLET (FP) PO PRN (10:46)
[2022-08-05] MEDS: CEFTRIAXONE 1 GM in DEXTROSE 5%-WATER - 50 ML IVPB SCH (11:07)
[2022-08-05] MEDS: cloNIDine HCL 0.1 MG TABLET PO SCH (11:07)
[2022-08-05] MEDS ORDERED: INSULIN (NOVOLOG) ASPART 100 UNITS/ML 10ML VIAL ONE (11:54)
[2022-08-05 14:24] VITALS: BP 115/67; PULSE 71; TEMP 98.4
[2022-08-05] MEDS ORDERED: DOCUSATE SODIUM 100 MG CAPSULE (FP) PO SCH (22:00)
[2022-08-05] MEDS ORDERED: POLYETHYLENE GLYCOL (HEALTHYLAX) 3350 17 GM PACKET PO SCH (22:00)
== END 2022-08-05 16:15 | disposition other institution (70) | DRG 254 ==
LOC: JER 23:37 → JERBED 08-03 06:00 → OBSVTOIN 08-03 10:14 → J7W 08-03 15:18
PROVIDERS: ADMIT Internal Medicine
DX: K59.03 Drug induced constipation (principal); K59.00 Constipation, unspecified; F11.20 Opioid dependence, uncomplicated; K52.9 Noninfective gastroenteritis and colitis, unspecified; E11.9 Type 2 diabetes mellitus without complications; I10 Essential (primary) hypertension; R11.2 Nausea with vomiting, unspecified; F31.9 Bipolar disorder, unspecified
CPT/HCPCS: 0241U-QW; 36415; 71045-TC-FY; 74177-TC; 80048; 80053; 80164; 80307; 81003; 82962; 83036; 83690; 83735; 84100; 84443; 84703; 85025; 85610; 86140; 87086; 87324; 87449; 93005; 93010; 99285-25; G0378; J1644; J3480; Q0162; Q9967

== ENCOUNTER 2022-08-05 17:00 | Inpatient (IN) | payer OTHER ==
[2022-08-05 17:30] VITALS: BMI 26.9
[2022-08-05] MEDS ORDERED: NALOXONE HCL 0.4 MG/ML VIAL IVPUSH PRN (19:38)
[2022-08-05] MEDS ORDERED: ACETAMINOPHEN 325 MG TABLET (FP) PO PRN (19:38)
[2022-08-05] MEDS ORDERED: COLLOIDAL OATMEAL 1 BAR EACH TP PRN (19:38)
[2022-08-05] MEDS ORDERED: POLYETHYLENE GLYCOL (HEALTHYLAX) 3350 17 GM PACKET PO PRN (19:38)
[2022-08-05] MEDS ORDERED: MAG HYDROX/AL HYDROX/SIMETH 30 ML UNIT-DOSE CUP PO PRN (19:38)
[2022-08-05] MEDS ORDERED: IBUPROFEN 400 MG TABLET (FP) PO PRN (19:38)
[2022-08-05] MEDS ORDERED: guaiFENesin 600 MG TABLET.ER (FP) PO PRN (19:38)
[2022-08-05] MEDS ORDERED: NALOXONE HCL (KLOXXADO) 8 MG SPRAY NS PRN (19:38)
[2022-08-05] MEDS ORDERED: NICOTINE POLACRILEX 2 MG GUM BUC PRN (19:38)
[2022-08-05] MEDS ORDERED: P-EPHED 60MG/TRIPROLIDI 2.5MG TABLET PO PRN (19:38)
[2022-08-05] MEDS ORDERED: LOPERAMIDE HCL 2 MG CAPSULE PO PRN (19:38)
[2022-08-05] MEDS ORDERED: MAGNESIUM HYDROX 2400MG/30ML ORAL SUSPENSION 30 ML CUP PO PRN (19:38)
[2022-08-05] MEDS ORDERED: hydrOXYzine PAMOATE 25 MG CAPSULE (FP) PO PRN (19:38)
[2022-08-05] MEDS ORDERED: BENZOCAINE/MENTHOL (CHLORASEPTIC ) LOZENGE MM PRN (19:38)
[2022-08-05] MEDS ORDERED: BENZONATATE 200 MG CAPSULE PO PRN (19:38)
[2022-08-05] MEDS ORDERED: AMMONIUM LACTATE 12% LOTION 225 GM BOTTLE TP PRN (19:38)
[2022-08-05] MEDS ORDERED: SENNOSIDES 8.6MG TABLET (FP) PO PRN (19:39)
[2022-08-05] MEDS ORDERED: LITHIUM CARBONATE 300 MG CAPSULE PO ONE (22:00)
[2022-08-05] MEDS ORDERED: DIVALPROEX SODIUM 500 MG TABLET E.C. PO ONE (22:00)
[2022-08-05] MEDS ORDERED: QUEtiapine FUMARATE 200 MG TABLET PO ONE (22:00)
[2022-08-05] MEDS: DOCUSATE SODIUM 100 MG CAPSULE (FP) PO SCH (22:11)
[2022-08-05] MEDS: MELATONIN 5 MG TABLETS PO SCH (22:11)
[2022-08-05] MEDS: cloNIDine HCL 0.1 MG TABLET PO SCH (22:11)
[2022-08-05] MEDS: POLYETHYLENE GLYCOL (HEALTHYLAX) 3350 17 GM PACKET PO SCH (22:11)
[2022-08-05] MEDS: THIAMINE HCL 100 MG TABLET (FP) PO SCH (22:12)
[2022-08-05] MEDS: METHOCARBAMOL 500 MG TABLET PO PRN (22:14)
[2022-08-05] MEDS: INSULIN SLIDING SCALE (NOVOLOG) 1 VIAL SQ SCH (22:17)
[2022-08-06] MEDS ORDERED: metFORMIN HCL 500 MG TABLET (FP) PO SCH (07:00)
[2022-08-06] MEDS ORDERED: INSULIN (NOVOLOG) ASPART 100 UNITS/ML 10ML VIAL ONE ×3 (07:17→16:46)
[2022-08-06] MEDS: INSULIN SLIDING SCALE (NOVOLOG) 1 VIAL SQ SCH ×4 (07:59→21:05)
[2022-08-06] MEDS: PRENATAL VITAMINS W/ FOLIC ACID TABLET (FP) PO SCH (10:08)
[2022-08-06] MEDS: DOCUSATE SODIUM 100 MG CAPSULE (FP) PO SCH ×2 (10:09→21:02)
[2022-08-06] MEDS: POLYETHYLENE GLYCOL (HEALTHYLAX) 3350 17 GM PACKET PO SCH (10:09)
[2022-08-06] MEDS: cloNIDine HCL 0.1 MG TABLET PO SCH ×2 (10:10→21:02)
[2022-08-06] MEDS: hydrOXYzine PAMOATE 25 MG CAPSULE (FP) PO PRN (10:12)
[2022-08-06] MEDS ORDERED: POLYETHYLENE GLYCOL (HEALTHYLAX) 3350 17 GM PACKET PO PRN (11:55)
[2022-08-06] MEDS: AMOX TR/POT CLAV 500MG/125MG TABLETS (FP) PO SCH ×2 (13:45→16:49)
[2022-08-06] MEDS: TOLNAFTATE 1% CREAM 15 GM TUBE TP SCH ×2 (13:45→21:06)
[2022-08-06] MEDS: METHOCARBAMOL 500 MG TABLET PO PRN (16:49)
[2022-08-06] MEDS: THIAMINE HCL 100 MG TABLET (FP) PO SCH (21:02)
[2022-08-06] MEDS: MELATONIN 5 MG TABLETS PO SCH (21:02)
[2022-08-06] MEDS: QUEtiapine FUMARATE 200 MG TABLET PO SCH (21:08)
[2022-08-06] MEDS: DIVALPROEX SODIUM 500 MG TABLET E.C. PO SCH (21:08)
[2022-08-06] MEDS ORDERED: methaDONE HCL 40 MG DISPERSABLE TABLET PO ONE (22:07)
[2022-08-07] MEDS: LIRAGLUTIDE 0.6 MG/0.1 ML PEN.INJCTR SQ SCH (06:51)
[2022-08-07] MEDS ORDERED: INSULIN (NOVOLOG) ASPART 100 UNITS/ML 10ML VIAL ONE ×4 (06:56→21:45)
[2022-08-07] MEDS: INSULIN SLIDING SCALE (NOVOLOG) 1 VIAL SQ SCH ×4 (06:59→21:31)
[2022-08-07] MEDS: AMOX TR/POT CLAV 500MG/125MG TABLETS (FP) PO SCH ×2 (07:08→17:41)
[2022-08-07] MEDS: PRENATAL VITAMINS W/ FOLIC ACID TABLET (FP) PO SCH (10:16)
[2022-08-07] MEDS: DOCUSATE SODIUM 100 MG CAPSULE (FP) PO SCH ×2 (10:16→21:29)
[2022-08-07] MEDS: cloNIDine HCL 0.1 MG TABLET PO SCH ×2 (10:16→21:29)
[2022-08-07] MEDS: hydrOXYzine PAMOATE 25 MG CAPSULE (FP) PO PRN (10:17)
[2022-08-07] MEDS: TOLNAFTATE 1% CREAM 15 GM TUBE TP SCH ×2 (10:17→21:29)
[2022-08-07] MEDS: MELATONIN 5 MG TABLETS PO SCH (21:28)
[2022-08-07] MEDS: DIVALPROEX SODIUM 500 MG TABLET E.C. PO SCH (21:28)
[2022-08-07] MEDS: QUEtiapine FUMARATE 200 MG TABLET PO SCH (21:29)
[2022-08-07] MEDS: THIAMINE HCL 100 MG TABLET (FP) PO SCH (21:40)
[2022-08-08] MEDS: LIRAGLUTIDE 0.6 MG/0.1 ML PEN.INJCTR SQ SCH (06:51)
[2022-08-08] MEDS ORDERED: INSULIN (NOVOLOG) ASPART 100 UNITS/ML 10ML VIAL ONE ×2 (06:51→12:00)
[2022-08-08] MEDS: INSULIN SLIDING SCALE (NOVOLOG) 1 VIAL SQ SCH ×4 (06:54→21:52)
[2022-08-08] MEDS: AMOX TR/POT CLAV 500MG/125MG TABLETS (FP) PO SCH ×2 (07:03→17:45)
[2022-08-08] MEDS: cloNIDine HCL 0.1 MG TABLET PO SCH ×2 (09:39→21:14)
[2022-08-08] MEDS: DOCUSATE SODIUM 100 MG CAPSULE (FP) PO SCH ×2 (09:39→21:51)
[2022-08-08] MEDS: PRENATAL VITAMINS W/ FOLIC ACID TABLET (FP) PO SCH (09:39)
[2022-08-08] MEDS: TOLNAFTATE 1% CREAM 15 GM TUBE TP SCH ×2 (11:00→21:15)
[2022-08-08] MEDS: DIVALPROEX SODIUM 500 MG TABLET E.C. PO SCH (21:14)
[2022-08-08] MEDS: THIAMINE HCL 100 MG TABLET (FP) PO SCH (21:14)
[2022-08-08] MEDS: QUEtiapine FUMARATE 200 MG TABLET PO SCH (21:14)
[2022-08-08] MEDS: MELATONIN 5 MG TABLETS PO SCH (21:15)
[2022-08-09] MEDS: LIRAGLUTIDE 0.6 MG/0.1 ML PEN.INJCTR SQ SCH (06:46)
[2022-08-09] MEDS ORDERED: INSULIN (NOVOLOG) ASPART 100 UNITS/ML 10ML VIAL ONE ×3 (07:06→17:07)
[2022-08-09] MEDS: INSULIN SLIDING SCALE (NOVOLOG) 1 VIAL SQ SCH ×4 (07:49→21:57)
[2022-08-09] MEDS: AMOX TR/POT CLAV 500MG/125MG TABLETS (FP) PO SCH ×2 (07:51→17:07)
[2022-08-09] MEDS: PRENATAL VITAMINS W/ FOLIC ACID TABLET (FP) PO SCH (10:14)
[2022-08-09] MEDS: DOCUSATE SODIUM 100 MG CAPSULE (FP) PO SCH ×2 (10:15→21:59)
[2022-08-09] MEDS: cloNIDine HCL 0.1 MG TABLET PO SCH ×2 (10:15→21:59)
[2022-08-09] MEDS: TOLNAFTATE 1% CREAM 15 GM TUBE TP SCH ×2 (10:15→22:00)
[2022-08-09] MEDS: hydrOXYzine PAMOATE 25 MG CAPSULE (FP) PO PRN (10:16)
[2022-08-09] MEDS: IBUPROFEN 600 MG TABLET (FP) PO PRN (15:57)
[2022-08-09] MEDS: METHOCARBAMOL 500 MG TABLET PO PRN (15:57)
[2022-08-09] MEDS: THIAMINE HCL 100 MG TABLET (FP) PO SCH (21:59)
[2022-08-09] MEDS: QUEtiapine FUMARATE 200 MG TABLET PO SCH (21:59)
[2022-08-09] MEDS: MELATONIN 5 MG TABLETS PO SCH (21:59)
[2022-08-09] MEDS: DIVALPROEX SODIUM 500 MG TABLET E.C. PO SCH (21:59)
[2022-08-10] MEDS: LIRAGLUTIDE 0.6 MG/0.1 ML PEN.INJCTR SQ SCH (06:53)
[2022-08-10] MEDS: INSULIN SLIDING SCALE (NOVOLOG) 1 VIAL SQ SCH ×4 (06:56→22:27)
[2022-08-10] MEDS: AMOX TR/POT CLAV 500MG/125MG TABLETS (FP) PO SCH ×2 (07:04→16:48)
[2022-08-10] MEDS: PRENATAL VITAMINS W/ FOLIC ACID TABLET (FP) PO SCH (09:51)
[2022-08-10] MEDS: cloNIDine HCL 0.1 MG TABLET PO SCH ×2 (09:51→22:25)
[2022-08-10] MEDS: TOLNAFTATE 1% CREAM 15 GM TUBE TP SCH ×2 (09:51→22:29)
[2022-08-10] MEDS: DOCUSATE SODIUM 100 MG CAPSULE (FP) PO SCH ×2 (09:51→22:27)
[2022-08-10] MEDS ORDERED: INSULIN (NOVOLOG) ASPART 100 UNITS/ML 10ML VIAL ONE ×2 (11:27→16:42)
[2022-08-10] MEDS: METHOCARBAMOL 500 MG TABLET PO PRN ×2 (15:39→22:24)
[2022-08-10] MEDS: IBUPROFEN 600 MG TABLET (FP) PO PRN (15:39)
[2022-08-10] MEDS: hydrOXYzine PAMOATE 25 MG CAPSULE (FP) PO PRN (22:24)
[2022-08-10] MEDS: DIVALPROEX SODIUM 500 MG TABLET E.C. PO SCH (22:24)
[2022-08-10] MEDS: MELATONIN 5 MG TABLETS PO SCH (22:25)
[2022-08-10] MEDS: QUEtiapine FUMARATE 200 MG TABLET PO SCH (22:25)
[2022-08-10] MEDS: THIAMINE HCL 100 MG TABLET (FP) PO SCH (22:25)
[2022-08-11] MEDS ORDERED: INSULIN (NOVOLOG) ASPART 100 UNITS/ML 10ML VIAL ONE (07:07)
[2022-08-11] MEDS: INSULIN SLIDING SCALE (NOVOLOG) 1 VIAL SQ SCH ×4 (07:08→21:17)
[2022-08-11] MEDS: LIRAGLUTIDE 0.6 MG/0.1 ML PEN.INJCTR SQ SCH (07:08)
[2022-08-11] MEDS: AMOX TR/POT CLAV 500MG/125MG TABLETS (FP) PO SCH ×2 (07:16→17:52)
[2022-08-11] MEDS: DOCUSATE SODIUM 100 MG CAPSULE (FP) PO SCH ×2 (10:14→21:19)
[2022-08-11] MEDS: cloNIDine HCL 0.1 MG TABLET PO SCH ×2 (10:14→21:19)
[2022-08-11] MEDS: PRENATAL VITAMINS W/ FOLIC ACID TABLET (FP) PO SCH (10:14)
[2022-08-11] MEDS: TOLNAFTATE 1% CREAM 15 GM TUBE TP SCH ×2 (10:16→23:14)
[2022-08-11] MEDS: MELATONIN 5 MG TABLETS PO SCH (21:19)
[2022-08-11] MEDS: QUEtiapine FUMARATE 200 MG TABLET PO SCH (21:19)
[2022-08-11] MEDS: THIAMINE HCL 100 MG TABLET (FP) PO SCH (21:19)
[2022-08-11] MEDS: DIVALPROEX SODIUM 500 MG TABLET E.C. PO SCH (21:19)
[2022-08-12] MEDS: LIRAGLUTIDE 0.6 MG/0.1 ML PEN.INJCTR SQ SCH (07:16)
[2022-08-12] MEDS: INSULIN SLIDING SCALE (NOVOLOG) 1 VIAL SQ SCH ×4 (07:16→21:51)
[2022-08-12] MEDS: AMOX TR/POT CLAV 500MG/125MG TABLETS (FP) PO SCH ×2 (07:16→17:08)
[2022-08-12] MEDS ORDERED: INSULIN (NOVOLOG) ASPART 100 UNITS/ML 10ML VIAL ONE ×2 (07:19→12:02)
[2022-08-12 07:32] VITALS: RESP 18
[2022-08-12] MEDS: cloNIDine HCL 0.1 MG TABLET PO SCH ×2 (10:13→21:53)
[2022-08-12] MEDS: DOCUSATE SODIUM 100 MG CAPSULE (FP) PO SCH ×2 (10:13→21:53)
[2022-08-12] MEDS: PRENATAL VITAMINS W/ FOLIC ACID TABLET (FP) PO SCH (10:14)
[2022-08-12] MEDS: TOLNAFTATE 1% CREAM 15 GM TUBE TP SCH ×2 (10:14→21:57)
[2022-08-12] MEDS: IBUPROFEN 600 MG TABLET (FP) PO PRN (13:09)
[2022-08-12] MEDS ORDERED: METHOCARBAMOL 500 MG TABLET PO PRN (13:58)
[2022-08-12] MEDS: THIAMINE HCL 100 MG TABLET (FP) PO SCH (21:53)
[2022-08-12] MEDS: QUEtiapine FUMARATE 200 MG TABLET PO SCH (21:53)
[2022-08-12] MEDS: MELATONIN 5 MG TABLETS PO SCH (21:56)
[2022-08-12] MEDS: DIVALPROEX SODIUM 500 MG TABLET E.C. PO SCH (21:56)
[2022-08-13] MEDS: AMOX TR/POT CLAV 500MG/125MG TABLETS (FP) PO SCH ×2 (08:02→18:00)
[2022-08-13] MEDS: INSULIN SLIDING SCALE (NOVOLOG) 1 VIAL SQ SCH ×4 (08:02→21:43)
[2022-08-13] MEDS: LIRAGLUTIDE 0.6 MG/0.1 ML PEN.INJCTR SQ SCH (09:53)
[2022-08-13] MEDS: DOCUSATE SODIUM 100 MG CAPSULE (FP) PO SCH ×2 (09:55→21:38)
[2022-08-13] MEDS: PRENATAL VITAMINS W/ FOLIC ACID TABLET (FP) PO SCH (09:55)
[2022-08-13] MEDS: TOLNAFTATE 1% CREAM 15 GM TUBE TP SCH ×2 (09:57→21:39)
[2022-08-13] MEDS: cloNIDine HCL 0.1 MG TABLET PO SCH ×3 (10:43→21:36)
[2022-08-13] MEDS ORDERED: INSULIN (NOVOLOG) ASPART 100 UNITS/ML 10ML VIAL ONE ×2 (12:05→16:36)
[2022-08-13] MEDS: DIVALPROEX SODIUM 500 MG TABLET E.C. PO SCH (21:38)
[2022-08-13] MEDS: THIAMINE HCL 100 MG TABLET (FP) PO SCH (21:38)
[2022-08-13] MEDS: QUEtiapine FUMARATE 200 MG TABLET PO SCH (21:38)
[2022-08-13] MEDS: HYDROCORTISONE 2.5% TOPICAL CREAM 30 GM TUBE TP PRN (21:39)
[2022-08-13] MEDS: MELATONIN 5 MG TABLETS PO SCH (21:48)
[2022-08-14] MEDS ORDERED: INSULIN (NOVOLOG) ASPART 100 UNITS/ML 10ML VIAL ONE ×2 (05:56→12:16)
[2022-08-14] MEDS: LIRAGLUTIDE 0.6 MG/0.1 ML PEN.INJCTR SQ SCH (06:00)
[2022-08-14] MEDS: INSULIN SLIDING SCALE (NOVOLOG) 1 VIAL SQ SCH ×3 (06:00→16:55)
[2022-08-14] MEDS: AMOX TR/POT CLAV 500MG/125MG TABLETS (FP) PO SCH ×2 (07:08→16:53)
[2022-08-14 07:24] VITALS: TEMP 96
[2022-08-14] MEDS: PRENATAL VITAMINS W/ FOLIC ACID TABLET (FP) PO SCH (09:52)
[2022-08-14] MEDS: DOCUSATE SODIUM 100 MG CAPSULE (FP) PO SCH (09:53)
[2022-08-14] MEDS: cloNIDine HCL 0.1 MG TABLET PO SCH (09:53)
[2022-08-14] MEDS: TOLNAFTATE 1% CREAM 15 GM TUBE TP SCH (09:54)
[2022-08-14] MEDS: HYDROCORTISONE 2.5% TOPICAL CREAM 30 GM TUBE TP PRN (09:55)
[2022-08-14 10:55] VITALS: BP 107/66; PULSE 103
[2022-08-14] MEDS: IBUPROFEN 600 MG TABLET (FP) PO PRN (11:03)
[2022-08-14] MEDS: hydrOXYzine PAMOATE 25 MG CAPSULE (FP) PO PRN (18:13)
[2022-08-14] MEDS ORDERED: DIVALPROEX SODIUM 500 MG TABLET E.C. PO SCH (22:00)
[2022-08-15] MEDS ORDERED: ESCITALOPRAM OXALATE 10 MG TABLET PO SCH (10:00)
== END 2022-08-14 18:55 | disposition home or self-care (01) | DRG 772 ==
LOC: YASAS 17:00 → Y5N 21:31
PROVIDERS: ADMIT Allergy & Immunology; ATTEND Psychiatry & Neurology Pain Medicine
PROC: HZ42ZZZ Group Counseling for Substance Abuse Treatment, Cognitive-Behavioral (ICD-10-PCS; principal; 2022-08-05)
DX: F11.20 Opioid dependence, uncomplicated (principal); F13.20 Sedative, hypnotic or anxiolytic dependence, uncomplicated; F17.210 Nicotine dependence, cigarettes, uncomplicated; F41.9 Anxiety disorder, unspecified; E11.65 Type 2 diabetes mellitus with hyperglycemia; E11.9 Type 2 diabetes mellitus without complications; Z79.85 Long-term (current) use of injectable non-insulin antidiabetic drugs; Z79.84 Long term (current) use of oral hypoglycemic drugs; B35.1 Tinea unguium; M25.512 Pain in left shoulder; F41.8 Other specified anxiety disorders; Z91.199 Patient's noncompliance with other medical treatment and regimen due to unspecified reason
CPT/HCPCS: 36415; 73630-TC-LT; 80164; 80178; 81025; 82962